=== PATIENT | male | born 1960 | race Caucasian/White ===

== ENCOUNTER → 2018-05-18 | Outpatient (CLI) | payer OTHER ==
[2015-06-29 12:36] VITALS: BP 127/73
[~2018-05-18] MED LIST: DAPA5TAB PO; GLIM4TAB2 PO; LISI1TAB3 PO; METF500T9 PO; OXYC1TAB22 PO
--- NOTE | 2018-05-18 22:10 | KCIC ---
EXAM: Lumbar spine, 3 views. HISTORY: Pain. COMPARISON: None. FINDINGS: 3 views of the lumbar spine are obtained. There is lumbar levoscoliosis centered at L2. There is degenerative endplate remodeling with disc space narrowing and osteophytosis primarily along the right aspect of L3-L4 and left aspect of L5-S1. This corresponds with levels of maximum scoliotic curvature. There is mild retrolisthesis of L3 on L4 and minimal grade 1 anterolisthesis of L4 and L5. There is chronic mild decreased anterior vertebral body height at T12. There is advanced facet arthropathy predominantly at the mid lower lumbar levels. IMPRESSION: 1. Multilevel degenerative change throughout the thoracic and lumbar spine, described in detail above. 2. Lumbar scoliosis and slight listhesis at the aforementioned levels. 3. No acute osseous finding. Electronically signed by: Adenike Crawley MD (05/18/2018 10:07 PM) [facility]
== END | disposition home or self-care (01) ==
LOC: KCIC 13:38
PROVIDERS: ATTEND Nurse Practitioner Gerontology
DX: M47.26 Other spondylosis with radiculopathy, lumbar region (principal); M47.814 Spondylosis without myelopathy or radiculopathy, thoracic region; M41.86 Other forms of scoliosis, lumbar region; M48.061 Spinal stenosis, lumbar region without neurogenic claudication
CPT/HCPCS: 72100

== ENCOUNTER → 2018-05-22 | Outpatient (CLI) | payer OTHER ==
[2015-06-29 12:36] VITALS: BP 127/73
--- NOTE | 2018-05-22 17:24 | KCIC ---
EXAM: AP, lateral and tangential patellar views of the right knee DATE: 05/22/2018 12:00 AM INDICATION: Right knee pain COMPARISON: No Prior FINDINGS: No evidence of acute fracture or dislocation. Joint spaces are preserved without significant degenerative/proliferative change. Moderate to severe medial compartment joint space narrowing with tricompartmental osteophytes. Small right knee joint effusion. Neutral patellar tracking. IMPRESSION: No evidence of acute fracture or dislocation. Small right knee joint effusion. Electronically signed by: Elieser Woodard MD (05/22/2018 5:21 PM) [facility]
== END | disposition home or self-care (01) ==
LOC: KCIC 11:13
PROVIDERS: ATTEND Nurse Practitioner Gerontology
DX: M25.461 Effusion, right knee (principal); M25.761 Osteophyte, right knee
CPT/HCPCS: 73562

== ENCOUNTER → 2018-09-24 | Outpatient (CLI) | payer OTHER ==
[2015-06-29 12:36] VITALS: BP 127/73
[~2018-09-24] MED LIST changes: +GABA600T7 PO; +INSU100V13 SQ; +LIRA0.6P2 SQ; +LISI-130 PO; +METF10007 PO; +NAPR220T70 PO; +NAPR500T8 PO
[2018-09-24 10:07] LABS: BASO % 0 % (0-3); EOS # 0.3 x10^3/uL (0.0-0.7); EOS % 4 % (0-3); HEMATOCRIT 48.3 % (39.0-53.0); HEMOGLOBIN 16.1 g/dL (13.0-17.5); LYMPH # 2.1 x10^3/uL (1.0-4.8); LYMPH % 28 % (24-48); MEAN CORPUSCULAR HEMOGLOBIN 31 pg (25-35); MEAN CORPUSCULAR HGB CONC 33 g/dL (31-37); MEAN CORPUSCULAR VOLUME 92 fL (79-100); MONO # 0.6 x10^3/uL (0.0-1.1); MONO % 8 % (0-9); NEUT # 4.6 x10^3uL (1.8-7.7); NEUT % 59 % (31-73); PLATELET COUNT 267 x10^3/uL (140-400); RED BLOOD COUNT 5.26 x10^6/uL (4.30-5.70); RED CELL DISTRIBUTION WIDTH 13.7 % (11.5-14.5); WHITE BLOOD COUNT 7.7 x10^3/uL (4.0-11.0)
[2018-09-24 10:16] LABS: BILIRUBIN,URINE SMALL (NEG); CLARITY,URINE CLEAR; COLOR,URINE YELLOW; NITRITE,URINE NEGATIVE (NEG); PH,URINE 5.5; PROTEIN,URINE NEGATIVE (NEG-TRACE)
[2018-09-24 10:22] LABS: PROTHROMBIN TIME PATIENT 13.2 SEC (11.7-14.0)
[2018-09-24 10:30] LABS: BACTERIA,URINE 0 /HPF (0-FEW); RBC,URINE 0 /HPF (0-2); WBC,URINE OCC /HPF (0-4)
--- NOTE | 2018-09-24 13:37 | EKG ---
[facility] [address] [place] [address] Test Date: 2018-09-24 Test Time: 13:02:16 Pat Name: SAUL STRAUSS Department: Room: Gender: M [employer]: : 1960 Requested By: CHI ADAMS Order Number: [id number] Reading MD: Jn Aguilera MD Measurements Intervals [place] Rate: 58 P: 26 MA: 224 QRS: 34 QRSD: 138 T: 31 QT: 438 QTc: 434 Interpretive Statements SINUS RHYTHM PROLONGED MA INTERVAL RIGHT BUNDLE BRANCH BLOCK NON-SPECIFIC ST/T CHANGES Electronically Signed On 09-25-2018 11:31:33 CDT by Jn Aguilera MD
--- NOTE | 2018-09-24 16:50 | RAD ---
Chest radiograph 09/24/2018 8:20 AM INDICATION: Hypertension. Preoperative evaluation COMPARISON: CT chest July 03, 2013, chest radiograph July 01, 2013, July 02, 2013 TECHNIQUE: Frontal and lateral views of the chest are provided. FINDINGS: The cardiomediastinal silhouette is within normal limits. There are no pleural effusions. There is no pulmonary vascular congestion. There is no pneumothorax. The lungs are clear. No significant osseous abnormality is identified. IMPRESSION: No acute cardiopulmonary process. Electronically signed by: Claudia Rodriguez MD (09/24/2018 4:47 PM) [id number]
== END | disposition home or self-care (01) ==
LOC: SURGPAT 13:15
PROVIDERS: ATTEND Orthopaedic Surgery
DX: Z01.818 Encounter for other preprocedural examination (principal); M17.0 Bilateral primary osteoarthritis of knee; M25.541 Pain in joints of right hand; I10 Essential (primary) hypertension; I45.10 Unspecified right bundle-branch block
CPT/HCPCS: 36415; 71046; 81001; 82306; 85025; 85610; 85651; 85730; 87641; 93005

== ENCOUNTER → 2018-10-01 | Outpatient (CLI) | payer OTHER ==
[2015-06-29 12:36] VITALS: BP 127/73
[~2018-10-01] MED LIST changes: +REGADENOSON 0.4 MG/5 ML DISP.SYRIN. IV ONE
--- NOTE | 2018-10-01 13:18 | RAD ---
MR#: [id number] Date of Study: 10/01/2018 Ordering Physician: RINKU JAIN Referring Physician: REN ALLEN Tech: RT Kirby Marino) (N) APPROVED REPORT Test Type: Pharmacological Stress Nurse/Tech: Nurys Martinez R.N. Test Indications: pre op Cardiac History: htn, dm Medications: see ehr Medical History: see ehr Resting ECG: SR RBBB Resting Heart Rate: 62 bpm Resting Blood Pressure: 121/73mmHg Pretest Chest Pain: No chest pain Nurse/Tech Notes lungs cta, heart tones regular Consent: The procedure was explained to the patient in lay terms. Informed consent was witnessed. Truman eout was entered into Needl. History and Stress Test performed by RT Kirby Otoole) (N) Pharm. Details Pharmacologic stress testing was performed using 0.4mg per 5ml of regadenoson given intravenously ove r 7-10 seconds. Stress Symptoms No chest pain or symptoms. POST EXERCISE Reason for Termination: Infusion complete Target HR: No Max HR: 91 bpm Max Blood Pressure: 120/76mmHg Chest Pain: No. Arrhythmia: No. ST Change: No. INTERPRETATION Stress EKG Conclusion: Baseline EKG showed sinus rhythm with RBBB. No ischemic changes at peak stres s. No arrhythmias. Imaging Protocol IMAGE PROTOCOL: Rest Tc-99m/stress Tc-99m 1 day Rest: Stress: Viability: Radiopharm.Tc99m YeogwczuqVz59b Sestamibi Dose10.6mCi 32.1mCi Duration 15min. 15min. Img Date 10/01/2018 10/01/2018 Inj-Img Rilc90dgd. 60min. Rest Admin Site:IV - Left AntecubitalAdministrator:RT Kirby Otoole)(N) Stress Admin Site: IV - Left AntecubitalAdministrator: RT Kirby Otoole)(N) STRESS DATA End Diast. Vol.129.0mlLVEDV index BSA58.0ml End Syst. Vol.45.0mlLVESV index BSA20.0ml Myocardial Blmb732.0gEject. Bpdjlxwn39.0% Stress Scores Regional WT2.00Summed WT9.00 Regional WM0.00Summed WM0.00 Study quality was good. Left Ventricular size was Normal at Rest and Stress. Lung uptake was . Left Ventricular ejection fraction is 65%. The rest and stress images show normal perfusion, normal contraction and thickening. LV Perf. Quant 17 Seg. SSS1.00 17 Seg. SRS7.00 17 Seg. SDS0.00 Stress Defect Extent (% LAD)2.50Rest Defect Extent (% LAD)15.60Rev. Defect Extent (% LAD)0.00 Stress Defect Extent (% LCX) 0.00Rest Defect Extent (% LCX)0.00Rev. Defect Extent (% LCX)0.00 Stress Defect Extent (% RCA)0.00Rest Defect Extent (% RCA)20.00Rev. Defect Extent (% RCA)0.00 Stress Defect Extent (% KWADWO)3.00Rest Defect Extent (% KWADWO)14.80Rev. Defect Extent (% KWADWO)0.00 Conclusion 1. Regadenoson cardioisotope stress test did not show any evidence of ischemia or infarct. 2. Normal left ventricular systolic function with ejection fraction calculated at 65%. 3. Low risk for cardiac events. Signed by : Rinku Jain Electronically Approved : 10/01/2018 13:18:07
== END | disposition home or self-care (01) ==
LOC: NM 07:49
PROVIDERS: ATTEND Internal Medicine Cardiovascular Disease
DX: Z01.810 Encounter for preprocedural cardiovascular examination (principal); I10 Essential (primary) hypertension; E11.9 Type 2 diabetes mellitus without complications
CPT/HCPCS: 78452; 93017; A9500; J2785

== ENCOUNTER → 2018-11-02 | Outpatient (CLI) | payer MEDICAID ==
[2018-10-12 11:00] VITALS: BP 106/62
[~2018-11-02] MED LIST changes: +CHOL2000 PO; +OXYC1TAB19 PO; -REGADENOSON 0.4 MG/5 ML DISP.SYRIN. IV ONE; +WARF-78 PO
== END | disposition home or self-care (01) ==
LOC: LAB 14:49
PROVIDERS: ATTEND Orthopaedic Surgery
DX: Z79.01 Long term (current) use of anticoagulants (principal)
CPT/HCPCS: 36415; 85610

== ENCOUNTER → 2018-11-29 | Outpatient (CLI) | payer MEDICAID ==
[2018-10-12 11:00] VITALS: BP 106/62
[~2018-11-29] MED LIST changes: +LISI1TAB23 PO; -LISI1TAB3 PO; +METF500T11 PO; -METF500T9 PO
--- NOTE | 2018-11-29 15:10 | CARD ---
MR#: [id number] Date of Study: 11/29/2018 Ordering Physician: RINKU JAIN, Referring Physician: RINKU JAIN Tech: Elli Jenkins RDCS APPROVED REPORT EXAM: Two-dimensional and M-mode echocardiogram with Doppler and color Doppler. Other Information Quality : AverageHR: 85bpm Rhythm : NSR INDICATION Hypertension/HCVD 2D DIMENSIONS RVDd3.0 (2.9-3.5cm)Left Atrium(2D)3.9 (1.6-4.0cm) IVSd1.3 (0.7-1.1cm)Aortic Root(2D)3.5 (2.0-3.7cm) LVDd4.7 (3.9-5.9cm)LVOT Diameter2.2 (1.8-2.4cm) PWd1.1 (0.7-1.1cm)IVSs2.4 (0.8-1.2cm) LVDs2.7 (2.5-4.0cm)FS (%) 41.0 % PWs1.7 (0.8-1.2cm)SV72.1 ml Aortic Valve AoV Peak Leno.121.0cm/sAoV VTI21.1cm AO Peak GR.5.9mmHgLVOT Peak Lneo.102.7cm/s LVOT VTI 18.63cmAO Mean GR.4mmHg VANDANA (VMAX)2.18gu8KWU (VTI)3.44cm2 Mitral Valve MV E Xnwmlkeg37.0cm/sMV DECEL TROP311nj MV A Bppvwetp76.8cm/sMV LVU12jz E/A Ratio0.7MVA (PHT)4.36cm2 TDI E/Lateral E'5.8 Pulmonary Valve PV Peak Eztfvevz872.6cm/sPV Peak Grad.5mmHg LEFT VENTRICLE The left ventricle is normal size. There is mild concentric left ventricular hypertrophy. The left ve ntricular systolic function is normal. The ejection fraction is estimated at 65%. There is normal LV segmental wall motion. Transmitral Doppler flow pattern is Grade I-abnormal relaxation pattern. RIGHT VENTRICLE The right ventricle is normal size. There is normal right ventricular wall thickness. The right ventr icular systolic function is normal. ATRIA The left atrium size is normal. The right atrium size is normal. The interatrial septum is intact wit h no evidence for an atrial septal defect or patent foramen ovale as noted on 2-D or Doppler imaging. AORTIC VALVE The aortic valve is mildly calcified. The aortic valve is trileaflet. Doppler and Color Flow revealed no significant aortic regurgitation. There is no significant aortic valvular stenosis. MITRAL VALVE Mitral annular calcification is mild. There is no evidence of mitral valve prolapse. There is no mitr al valve stenosis. Doppler and Color Flow revealed trace mitral valve regurgitation. TRICUSPID VALVE The tricuspid valve is normal in structure and function. Doppler and Color Flow revealed no tricuspid valve regurgitation noted. There is no tricuspid valve prolapse or vegetation. There is no tricuspid valve stenosis. PULMONIC VALVE The pulmonic valve is not well visualized. GREAT VESSELS The aortic root is normal in size. The ascending aorta is normal in size. The IVC is normal in size a nd collapses >50% with inspiration. PERICARDIAL EFFUSION There is no evidence of significant pericardial effusion. Critical Notification Critical Value: No <Conclusion> The left ventricle is normal size. The left ventricular systolic function is normal. The ejection fraction is estimated at 65%. There is mild concentric left ventricular hypertrophy. There is no significant aortic valvular stenosis. Doppler and Color Flow revealed no significant aortic regurgitation. Doppler and Color Flow revealed trace mitral valve regurgitation. Doppler and Color Flow revealed no tricuspid valve regurgitation noted. Signed by : Shayan Guido MD Electronically Approved : 11/29/2018 15:10:01
== END | disposition home or self-care (01) ==
LOC: ECHO 12:51
PROVIDERS: ATTEND Internal Medicine Cardiovascular Disease
DX: Z01.810 Encounter for preprocedural cardiovascular examination (principal); I08.0 Rheumatic disorders of both mitral and aortic valves; I11.9 Hypertensive heart disease without heart failure; E11.9 Type 2 diabetes mellitus without complications
CPT/HCPCS: 93306

== ENCOUNTER 2018-12-09 18:50 | Inpatient (IN) | payer MEDICAID ==
[~2018-12-09] VITALS: Ht 175.3 cm; Wt 106.8 kg
[2018-12-09] MEDS ORDERED: ONDANSETRON PF 4 MG/2 ML VIAL. IV ONE (19:45)
[2018-12-09] MEDS ORDERED: PANTOPRAZOLE IV PUSH 40 MG VIAL. IVP ONE (19:45)
[2018-12-09] MEDS ORDERED: MORPHINE SULFATE 4 MG/ML VIAL. IV/SQ PRN (19:45)
[2018-12-09 19:46] LABS: BASO % 0 % (0-3); EOS # 0.1 x10^3/uL (0.0-0.7); EOS % 1 % (0-3); HEMATOCRIT 45.8 % (39.0-53.0); HEMOGLOBIN 15.1 g/dL (13.0-17.5); LYMPH # 1.5 x10^3/uL (1.0-4.8); LYMPH % 13 % (24-48); MEAN CORPUSCULAR HEMOGLOBIN 29 pg (25-35); MEAN CORPUSCULAR HGB CONC 33 g/dL (31-37); MEAN CORPUSCULAR VOLUME 87 fL (79-100); MONO # 0.7 x10^3/uL (0.0-1.1); MONO % 6 % (0-9); NEUT # 9.3 x10^3/uL (1.8-7.7); NEUT % 80 % (31-73); PLATELET COUNT 310 x10^3/uL (140-400); RED BLOOD COUNT 5.24 x10^6/uL (4.30-5.70); RED CELL DISTRIBUTION WIDTH 14.5 % (11.5-14.5); WHITE BLOOD COUNT 11.7 x10^3/uL (4.0-11.0)
--- NOTE | 2018-12-09 19:47 | PHYS DOC ---
Past Medical History Past Medical History: Diabetes-Type II, Hypertension, Other Additional Past Medical Histor: hernia Past Surgical History: Tonsillectomy Additional Past Surgical Histo: Umbilical Hernia repair Alcohol Use: None Drug Use: Marijuana, Methamphetamine Adult General Chief Complaint Chief Complaint: ABDOMINAL PAIN HPI HPI 58-year-old male presents to the emergency Department with complaints of abdominal pain. Patient states pain started around 7 AM today when he woke, describes as a burning sensation with radiation to his back. He's had some chills, no fever, diarrhea, nausea appreciated. Patient does have intermittent shortness of breath. He is hypertensive on initial evaluation blood pressure 200 systolically. Upon my evaluation patient had evidence of 13 beats of V. tach. Nothing really makes his pain worse or better, states he can't get comfortable. Review of Systems Review of Systems Constitutional: Denies fever or chills [] Respiratory: shortness of breath, no [] Cardiovascular: No additional information not addressed in HPI [] GI: Positive abdominal pain, no nausea, vomiting, bloody stools or diarrhea [] : Denies dysuria or hematuria [] Musculoskeletal: Pain radiates to the back Integument: Denies rash or skin lesions [] Neurologic: Denies headache, focal weakness or sensory changes [] All other systems were reviewed and found to be within normal limits, except as documented in this note. Current Medications Current Medications Current Medications Medications (Trade) Dose Ordered Sig/Angelique Start Time Stop Time Status Last Admin Dose Admin Info (CONTRAST GIVEN -- Rx MONITORING) 1 each PRN DAILY PRN 12/09/18 20:15 12/11/18 20:14 Iohexol (Omnipaque 350 Mg/ml) 90 ml 1X ONCE 12/09/18 20:15 12/09/18 20:16 DC 12/09/18 20:26 90 ML Morphine Sulfate (Morphine Sulfate) 4 mg PRN Q15MIN PRN 12/09/18 19:45 12/10/18 19:44 12/09/18 20:16 4 MG Ondansetron HCl (Zofran) 4 mg 1X ONCE 12/09/18 19:45 12/09/18 19:46 DC 12/09/18 20:16 4 MG Pantoprazole Sodium (PROTONIX VIAL for IV PUSH) 40 mg 1X ONCE 12/09/18 19:45 12/09/18 19:46 DC 12/09/18 20:16 40 MG Allergies Allergies Allergies Coded Allergies Type Severity Reaction Last Updated Verified No Known Drug Allergies 10/09/18 No Physical Exam Physical Exam Constitutional: Well developed, well nourished, no acute distress, non-toxic appearance. [] HENT: Normocephalic, atraumatic, bilateral external ears normal, oropharynx mo ist, no oral exudates, nose normal. [] Neck: Normal range of motion, no tenderness, supple, no stridor. [] Cardiovascular:Heart rate regular rhythm, no murmur [] Lungs & Thorax: Bilateral breath sounds clear to auscultation [] Abdomen: Bowel sounds normal, soft, no pulsatile masses, abdominal pain, radiation to back,[] Skin: Warm, dry, no erythema, no rash. [] Back: No tenderness, no CVA tenderness. [] Extremities: No tenderness, no cyanosis, no clubbing, ROM intact, no edema. [] Neurologic: Alert and oriented X 3, o focal deficits noted. [] Psychologic: Affect normal, judgement normal, mood normal. [] Current Patient Data Vital Signs Vital Signs Date Time Temp Pulse Resp B/P (MAP) Pulse Ox O2 Delivery O2 Flow Rate FiO2 12/09/18 20:16 97 Room Air 12/09/18 19:07 97.5 82 17 204/101 (135) 97.5 Lab Values Laboratory Tests Test 12/09/18 19:20 12/09/18 19:55 White Blood Count 11.7 x10^3/uL (4.0-11.0) H Red Blood Count 5.24 x10^6/uL (4.30-5.70) Hemoglobin 15.1 g/dL (13.0-17.5) Hematocrit 45.8 % (39.0-53.0) Mean Corpuscular Volume 87 fL (79-100) Mean Corpuscular Hemoglobin 29 pg (25-35) Mean Corpuscular Hemoglobin Concent 33 g/dL (31-37) Red Cell Distribution Width 14.5 % (11.5-14.5) Platelet Count 310 x10^3/uL (140-400) Neutrophils (%) (Auto) 80 % (31-73) H Lymphocytes (%) (Auto) 13 % (24-48) L Monocytes (%) (Auto) 6 % (0-9) Eosinophils (%) (Auto) 1 % (0-3) Basophils (%) (Auto) 0 % (0-3) Neutrophils # (Auto) 9.3 x10^3/uL (1.8-7.7) H Lymphocytes # (Auto) 1.5 x10^3/uL (1.0-4.8) Monocytes # (Auto) 0.7 x10^3/uL (0.0-1.1) Eosinophils # (Auto) 0.1 x10^3/uL (0.0-0.7) Basophils # (Auto) 0.0 x10^3/uL (0.0-0.2) Prothrombin Time 12.5 SEC (11.7-14.0) Prothrombin Time INR 1.0 (0.8-1.1) Sodium Level 140 mmol/L (136-145) Potassium Level 3.7 mmol/L (3.5-5.1) Chloride Level 100 mmol/L (98-107) Carbon Dioxide Level 30 mmol/L (21-32) Anion Gap 10 (6-14) Blood Urea Nitrogen 20 mg/dL (8-26) Creatinine 0.7 mg/dL (0.7-1.3) Estimated GFR (Cockcroft-Gault) 115.0 BUN/Creatinine Ratio 29 (6-20) H Glucose Level 138 mg/dL (70-99) H Calcium Level 9.0 mg/dL (8.5-10.1) Magnesium Level 1.9 mg/dL (1.8-2.4) Total Bilirubin 0.4 mg/dL (0.2-1.0) Aspartate Amino Transferase (AST) 14 U/L (15-37) L Alanine Aminotransferase (ALT) 19 U/L (16-63) Alkaline Phosphatase 106 U/L (46-116) Troponin I Quantitative 0.081 ng/mL (0.000-0.055) Total Protein 7.3 g/dL (6.4-8.2) Albumin 3.5 g/dL (3.4-5.0) Albumin/Globulin Ratio 0.9 (1.0-1.7) L Lactic Acid Level 1.0 mmol/L (0.4-2.0) Laboratory Tests 12/09/18 19:20 Laboratory Tests 12/09/18 19:20 EKG EKG EKG reveals right bundle branch block, heart rate 65, no STEMI[] Interpretation Time: 1942 interpretation Radiology/Procedures Radiology/Procedures [facility] [address] [place] [address] IMAGING REPORT Signed PATIENT: SAUL STRAUSSCCOUNT: [id number] : 1960 LOCATION: ER AGE: 58 SEX: M EXAM STATUS: REG ER ORD. PHYSICIAN: NIMISHA PERKINS MD REASON: abdominal pain, radiation to back, Accelerated HTN PROCEDURE: CT ANGIOGRAPHY CHEST ABDOMEN EXAM: CT of chest and abdomen CLINICAL HISTORY: abdominal pain, radiation to back, Accelerated HTN. COMPARISON: 07/03/13 TECHNIQUE: CT of the chest and abdomen was performed before and after the administration of intravenous contrast during the aortic arterial phase. Axial, coronal and sagittal reformatted images were generated including MIP images. ---PQRS compliance statement - One or more of the following individualized dose reduction techniques were utilized for this study: 1. Automated exposure control 2. Adjustment of the mA and/or kV according to patient size 3. Use of iterative reconstruction technique--- FINDINGS: CT angiogram: Cardiac motion limits evaluation of the ascending aorta. Within these constraints no definite aortic aneurysm is seen. At the level of the right pulmonary artery, the ascending aorta measures 3.7 cm. At the aortic arch the aorta measures 2.8 cm. At the level of the descending aorta, the left pulmonary artery measures 2.6 cm. At the diaphragmatic hiatus, the aorta measures 2.5 cm. The abdominal aorta remains normal in caliber throughout. No aortic dissection is seen. Common origin of the brachiocephalic artery and left common carotid artery. The left vertebral artery originates from the aorta. Asymmetric enlargement of the left pulmonary artery, may be seen with pulmonary arterial hypertension. CHEST: Heart is not enlarged. No pericardial effusion. Coronary artery calcifications are seen. No pleural effusion or pneumothorax. Linear and patchy opacities dependently in the lower lobes likely atelectasis or scarring. Emphysematous changes are seen bilaterally. No thoracic lymphadenopathy. Abdomen: Hepatic hypoattenuation likely hepatic steatosis. Focal fatty sparing along the gallbladder fossa. Spleen is unremarkable. Adrenal glands are normal. Pancreas is unremarkable. Symmetric nephrograms. Right interpolar and lower pole renal hypodense lesions, likely cysts. Focal renal cortical thinning right upper pole. No hydronephrosis. Nonobstructing bilateral renal calculi. There is distention of the gallbladder measuring up to 5.5 cm. No biliary ductal dilatation. Fat infiltration is seen about the cystic duct and common duct. Moderate colonic stool content is seen. Appendix is normal. No small or large bowel dilatation. Colonic diverticula without evidence for acute diverticulitis. Local hernia contains a short segment of small bowel. No abdominal lymphadenopathy. No abdominal ascites. Bones: Degenerative changes of the spine are seen. No aggressive osseous lesion is seen. IMPRESSION: 1. Aorta is grossly normal in caliber without evidence for aortic dissection. 2. The gallbladder is distended measuring up to 5.5 cm transverse dimension, with infiltration about the cystic duct and medial portion of the gallbladder. These findings are suspicious for acute cholecystitis. 3. Hepatic steatosis with focal fatty sparing at the gallbladder fossa. 4. Periumbilical hernia containing a short segment of small bowel 5. Nonobstructing bilateral renal calculi. Electronically signed by: Elieser Gaytan MD (12/09/2018 8:52 PM) [facility] DICTATED and SIGNED BY: ELIESER GAYTAN MD DATE: 12/09/182051 [] Course & Med Decision Making Course & Med Decision Making Pertinent Labs and Imaging studies reviewed. (See chart for details) []58-year-old male presents to the emergency Department with complaints of abdominal pain. Patient states pain started around 7 AM today when he woke, describes as a burning sensation with radiation to his back. He's had some chills, no fever, diarrhea, nausea appreciated. Patient does have intermittent shortness of breath. He is hypertensive on initial evaluation blood pressure 200 systolically. Upon my evaluation patient had evidence of 13 beats of V. tach. Nothing really makes his pain worse or better, states he can't comfortable. Labs/Imaging reviewed. Troponin mildly elevated 0.081, lactic acid 1.0, pulse of 11.7, potassium 3.7, RBC 1.9. CT imaging of the chest and abdomen reviewed no evidence of aortic dissection, [place] is distended measuring up to 5.5 cm however AST, ALT, alkaline phosphatase are within normal limits. No obvious evidence of large burden PE. Discussed findings with primary care physician, Dr. Adkins. We'll initiate heparin with bolus, heparin drip and continued observation in CVC. Etiology consultation. Zosyn 4.5 g IV �1 given abnormal findings on CT scan however will need to be cleared by cardiology prior to further surgical evaluation if in fact cholecystitis declares itself. Dragon Disclaimer Dragon Disclaimer This electronic medical record was generated, in whole or in part, using a voice recognition dictation system. Departure Departure Impression: Primary Impression: NSTEMI (non-ST elevated myocardial infarction) Additional Impressions: NSVT (nonsustained ventricular tachycardia) Abdominal pain Disposition: ADMITTED INPATIENT Admitting Physician: Elmer Adkins Condition: GUARDED Referrals: Marilou ADKINS MD (PCP) Problem Qualifiers NIMISHA PERKINS MD Dec 09, 2018 19:47
[2018-12-09 19:53] LABS: PROTHROMBIN TIME PATIENT 12.5 SEC (11.7-14.0)
[2018-12-09 19:55] LABS: CREATININE 0.7 mg/dL (0.7-1.3); POTASSIUM 3.7 mmol/L (3.5-5.1)
[2018-12-09 20:00] LABS: ALBUMIN 3.5 g/dL (3.4-5.0); ALBUMIN/GLOBULIN RATIO 0.9 (1.0-1.7); TOTAL BILIRUBIN 0.4 mg/dL (0.2-1.0); TOTAL PROTEIN 7.3 g/dL (6.4-8.2)
[2018-12-09] MEDS ORDERED: CONTRAST GIVEN. MC PRN (20:15)
[2018-12-09] MEDS ORDERED: IOHEXOL 350 MG/ML 100 ML VIAL. IV ONE (20:15)
--- NOTE | 2018-12-09 20:55 | RAD ---
EXAM: CT of chest and abdomen CLINICAL HISTORY: abdominal pain, radiation to back, Accelerated HTN. COMPARISON: 07/03/13 TECHNIQUE: CT of the chest and abdomen was performed before and after the administration of intravenous contrast during the aortic arterial phase. Axial, coronal and sagittal reformatted images were generated including MIP images. ---PQRS compliance statement - One or more of the following individualized dose reduction techniques were utilized for this study: 1. Automated exposure control 2. Adjustment of the mA and/or kV according to patient size 3. Use of iterative reconstruction technique--- FINDINGS: CT angiogram: Cardiac motion limits evaluation of the ascending aorta. Within these constraints no definite aortic aneurysm is seen. At the level of the right pulmonary artery, the ascending aorta measures 3.7 cm. At the aortic arch the aorta measures 2.8 cm. At the level of the descending aorta, the left pulmonary artery measures 2.6 cm. At the diaphragmatic hiatus, the aorta measures 2.5 cm. The abdominal aorta remains normal in caliber throughout. No aortic dissection is seen. Common origin of the brachiocephalic artery and left common carotid artery. The left vertebral artery originates from the aorta. Asymmetric enlargement of the left pulmonary artery, may be seen with pulmonary arterial hypertension. CHEST: Heart is not enlarged. No pericardial effusion. Coronary artery calcifications are seen. No pleural effusion or pneumothorax. Linear and patchy opacities dependently in the lower lobes likely atelectasis or scarring. Emphysematous changes are seen bilaterally. No thoracic lymphadenopathy. Abdomen: Hepatic hypoattenuation likely hepatic steatosis. Focal fatty sparing along the gallbladder fossa. Spleen is unremarkable. Adrenal glands are normal. Pancreas is unremarkable. Symmetric nephrograms. Right interpolar and lower pole renal hypodense lesions, likely cysts. Focal renal cortical thinning right upper pole. No hydronephrosis. Nonobstructing bilateral renal calculi. There is distention of the gallbladder measuring up to 5.5 cm. No biliary ductal dilatation. Fat infiltration is seen about the cystic duct and common duct. Moderate colonic stool content is seen. Appendix is normal. No small or large bowel dilatation. Colonic diverticula without evidence for acute diverticulitis. Local hernia contains a short segment of small bowel. No abdominal lymphadenopathy. No abdominal ascites. Bones: Degenerative changes of the spine are seen. No aggressive osseous lesion is seen. IMPRESSION: 1. Aorta is grossly normal in caliber without evidence for aortic dissection. 2. The gallbladder is distended measuring up to 5.5 cm transverse dimension, with infiltration about the cystic duct and medial portion of the gallbladder. These findings are suspicious for acute cholecystitis. 3. Hepatic steatosis with focal fatty sparing at the gallbladder fossa. 4. Periumbilical hernia containing a short segment of small bowel 5. Nonobstructing bilateral renal calculi. Electronically signed by: Elieser Woodard MD (12/09/2018 8:52 PM) [facility]
[2018-12-09] MEDS ORDERED: MORPHINE SULFATE 2 MG/ML VIAL. IV PRN (21:15)
[2018-12-09] MEDS ORDERED: NITROGLYCERIN SUBLINGUAL 0.4 MG BOTTLE OF 25. SL PRN (21:15)
[2018-12-09] MEDS ORDERED: ONDANSETRON PF 4 MG/2 ML VIAL. IV PRN (21:15)
[2018-12-09] MEDS ORDERED: HEPARIN 25,000UTS/500ML PREMIX 500 ML IV ONE (21:30)
[2018-12-09] MEDS ORDERED: HEPARIN for IV BOLUS 10,000 UNIT/10 ML VIAL. IV ONE (21:30)
[2018-12-09] MEDS ORDERED: ASPIRIN 325 MG TABLET PO ONE (21:30)
[2018-12-09] MEDS ORDERED: PIPERACILLIN/TAZOBACTAM 4.5 GM in IV NORMAL SALINE 100ML 100 ML IV ONE (21:30)
[2018-12-09] MEDS ORDERED: hydrALAZINE 20 MG/ML VIAL. IVP PRN (21:30)
[2018-12-09] MEDS ORDERED: HEPARIN for IV BOLUS 10,000 UNIT/10 ML VIAL. IV PRN (22:00)
[2018-12-09] MEDS ORDERED: HEPARIN 25,000UTS/500ML PREMIX 500 ML IV PRN (22:00)
[2018-12-09 23:24] VITALS: BP 142/90
[2018-12-10] MEDS ORDERED: INFLUENZA VAX SCREEN BY RX. MC PRN ×2 (01:00→01:45)
[2018-12-10 01:40] LABS: BILIRUBIN,URINE NEGATIVE (NEG); CLARITY,URINE CLEAR; COLOR,URINE YELLOW; NITRITE,URINE NEGATIVE (NEG); PROTEIN,URINE NEGATIVE (NEG-TRACE)
[2018-12-10 01:48] LABS: BACTERIA,URINE 0 /HPF (0-FEW); RBC,URINE 0 /HPF (0-2); SQUAMOUS EPITHELIAL CELL,UR OCC /LPF; WBC,URINE OCC /HPF (0-4)
[2018-12-10 03:40] VITALS: BP 131/72
[2018-12-10 04:55] LABS: BASO % 0 % (0-3); EOS # 0.1 x10^3/uL (0.0-0.7); EOS % 1 % (0-3); HEMATOCRIT 43.5 % (39.0-53.0); HEMOGLOBIN 14.4 g/dL (13.0-17.5); LYMPH # 1.3 x10^3/uL (1.0-4.8); LYMPH % 10 % (24-48); MEAN CORPUSCULAR HEMOGLOBIN 29 pg (25-35); MEAN CORPUSCULAR HGB CONC 33 g/dL (31-37); MEAN CORPUSCULAR VOLUME 87 fL (79-100); MONO # 0.8 x10^3/uL (0.0-1.1); MONO % 7 % (0-9); NEUT # 10.3 x10^3/uL (1.8-7.7); NEUT % 82 % (31-73); PLATELET COUNT 287 x10^3/uL (140-400); RED BLOOD COUNT 4.97 x10^6/uL (4.30-5.70); RED CELL DISTRIBUTION WIDTH 14.1 % (11.5-14.5); WHITE BLOOD COUNT 12.5 x10^3/uL (4.0-11.0)
[2018-12-10 05:18] LABS: ALBUMIN 3.1 g/dL (3.4-5.0); CALCIUM 8.7 mg/dL (8.5-10.1); CREATININE 0.6 mg/dL (0.7-1.3); GFR 137.4; POTASSIUM 4.2 mmol/L (3.5-5.1); TOTAL BILIRUBIN 0.7 mg/dL (0.2-1.0); TOTAL PROTEIN 6.3 g/dL (6.4-8.2)
--- NOTE | 2018-12-10 06:33 | EKG ---
[facility] [address] [place] [address] Test Date: 2018-12-09 Test Time: 19:39:51 Pat Name: SAUL STRAUSS Department: Room: Gender: M [employer]: : 1960 Requested By: NIMISHA PERKINS Order Number: [id number] Reading MD: Measurements Intervals [place] Rate: 64 P: 177 GA: 212 QRS: -167 QRSD: 130 T: 175 QT: 420 QTc: 437 Interpretive Statements SINUS RHYTHM * POSSIBLE REVERSAL OF THE ARM LEADS ABNORMAL RIGHT SUPERIOR AXIS DEVIATION RIGHT BUNDLE BRANCH BLOCK RVH WITH REPOLARIZATION ABNORMALITY QRS(T) CONTOUR ABNORMALITY CONSIDER HIGH LATERAL INFARCT CONSISTENT WITH INFERIOR INFARCT AGE UNDETERMINED ABNORMAL ECG No previous ECG available for comparison
[2018-12-10 07:00] VITALS: BP 114/65
[2018-12-10] MEDS ORDERED: ANTI-COAG MONITOR BY PHARMACY. MC PRN (08:45)
[2018-12-10] MEDS ORDERED: FLU VAX QS 2019-20 (36MOS+)/PF 0.5 ML SYRINGE. VAX IM ONE (09:00)
--- NOTE | 2018-12-10 10:25 | PDOC1 ---
History and Physical Date of Admission Date of Admission 12/09/18 Identification/Chief Complaint Chief Complaint abdominal pain Source Source: Chart review, Patient History of Present Illness History of Present Illness He presented to ER with abdominal pain and CT imaging showing changes of acute cholecystitis and he now has a positive Gomez's sign. He also has an umbilical hernia with a loop of bowel and steatohepatitis changes of liver and kidney stones. While in the ER and on the monitor he had frequent PVCs and a troponin was checked and is slightly elevated and subsequent one is a little higher. He is not known to have heart disease and was cleared for TKR 2 mo ago with a normal echo and stress MPI but is diabetic and has hyperlipidemia. He denies chest pain. Overnight his WBC went up and is now mildly abnormal. He had a right knee replacement earlier this year. He is currently on Heparin and was dosed with antibiotics in the ER Past Medical History Cardiovascular: HTN Pulmonary: No pertinent hx GI: Other (umbilical hernia) Heme/Onc: No pertinent hx Hepatobiliary: Cholelithiasis (just discovered) Psych: No pertinent hx Rheumatologic: Other (OA) Infectious disease: No pertinent hx ENT: No pertinent hx Renal/: Other (kidney stones) Endocrine: Diabetes (type 2) Dermatology: No pertinent hx Past Surgical History Past Surgical History: Hernia Repair (umbilical), Total knee replacement (right), Tonsillectomy, Other Family History Family History: Cancer (colon, brother), Hypertension Social History Smoke: Quit (quit > 10 yrs ago) ALCOHOL: none Drugs: None Current Problem List Problem List Problems Medical Problems: (1) Abdominal pain Status: Acute Current Medications Current Medications Current Medications Medications (Trade) Dose Ordered Sig/Angelique Start Time Stop Time Status Last Admin Dose Admin Aspirin (Trace Aspirin) 325 mg 1X ONCE 12/09/18 21:30 12/09/18 21:31 DC 12/09/18 21:56 325 MG Gabapentin (Neurontin) 900 mg DAILY 12/10/18 09:00 Heparin Sodium (Porcine) (Heparin Sodium) 2,650 unit PRN Q6HRS PRN 12/09/18 22:00 12/10/18 05:34 2,650 UNIT Heparin Sodium/ Dextrose 500 ml @ 0 mls/hr CONT PRN 12/09/18 22:00 12/09/18 22:55 20 MLS/HR Hydralazine HCl (Apresoline Inj) 10 mg PRN Q4HRS PRN 12/09/18 21:30 Influenza Virus Vaccine Quadrival (Afluria Quad 2019-20 (3yr Up) Syringe) 0.5 ml ONCE ONCE 12/10/18 09:00 12/10/18 09:01 DC Info (Anti-Coagulation Monitoring By Pharmacy) 1 each PRN DAILY PRN 12/10/18 08:45 Info (CONTRAST GIVEN -- Rx MONITORING) 1 each PRN DAILY PRN 12/09/18 20:15 12/11/18 20:14 Info (FLU VACCINE SCREEN per RX) 1 each PRN 1X PRN 12/10/18 01:45 Cancel Insulin Glargine (Lantus Syringe) 8 unit DAILY 12/10/18 09:00 Iohexol (Omnipaque 350 Mg/ml) 90 ml 1X ONCE 12/09/18 20:15 12/09/18 20:16 DC 12/09/18 20:26 90 ML Lisinopril (Prinivil) 40 mg DAILY 12/10/18 09:00 Metformin HCl (Glucophage) 500 mg DAILYWBKFT 12/12/18 08:00 Morphine Sulfate (Morphine Sulfate) 2 mg PRN Q2HR PRN 12/09/18 21:15 12/10/18 21:14 12/09/18 22:38 2 MG Nitroglycerin (Nitrostat) 0.4 mg PRN Q5MIN PRN 12/09/18 21:15 12/10/18 21:14 Non-Formulary Medication (Dapagliflozin Propanediol (Farxiga)) 5 mg DAILY 12/10/18 09:00 UNV Non-Formulary Medication (Liraglutide (Victoza 3-[place])) 1.2 mg DAILY08 12/11/18 08:00 UNV Ondansetron HCl (Zofran) 4 mg PRN Q8HRS PRN 12/09/18 21:15 12/10/18 21:14 Pantoprazole Sodium (PROTONIX VIAL for IV PUSH) 40 mg 1X ONCE 12/09/18 19:45 12/09/18 19:46 DC 12/09/18 20:16 40 MG Piperacillin Sod/ Tazobactam Sod 4.5 gm/Sodium Chloride 100 ml @ 200 mls/hr 1X ONCE 12/09/18 21:30 12/09/18 21:59 DC 12/09/18 21:56 200 MLS/HR Allergies Allergies Allergies Coded Allergies Type Severity Reaction Last Updated Verified No Known Drug Allergies 10/09/18 No ROS Review of System CONSTITUTIONAL: No fever or chills EYES: No recent changes SKIN: No rash or itching CARDIOVASCULAR: No chest pain, syncope, palpitations, or edema RESPIRATORY: No SOB or cough GASTROINTESTINAL: + abdominal pain NEUROLOGICAL: No headaches or weakness ENDOCRINE: No cold or heat intolerance GENITOURINARY: No urgency or frequency of urination MUSCULOSKELETAL: + back pain, + left knee joint pain LYMPHATICS: No enlarged lymph nodes PSYCHIATRIC: No anxiety or depression Physical Exam Physical Exam GEN.: No apparent distress. Alert and oriented. HEENT: Head is normocephalic, atraumatic NECK: Supple. LUNGS: Clear to auscultation. HEART: RRR, S1, S2 present. Peripheral pulses intact ABDOMEN: + Gomez's sign, bowel sounds present, liver not palpable EXTREMITIES: Without any cyanosis, healed right TKR incision. NEUROLOGIC: Normal speech, normal tone PSYCHIATRIC: Normal affect, normal mood. SKIN: No ulcerations Vitals Vitals Vital Signs Date Time Temp Pulse Resp B/P (MAP) Pulse Ox O2 Delivery O2 Flow Rate FiO2 12/10/18 07:00 98.4 78 16 114/65 (81) 91 Room Air 98.4 12/09/18 20:58 2.0 Labs Labs Laboratory Tests Test 12/09/18 19:20 12/09/18 19:55 12/09/18 22:35 12/10/18 01:25 White Blood Count 11.7 x10^3/uL (4.0-11.0) Red Blood Count 5.24 x10^6/uL (4.30-5.70) Hemoglobin 15.1 g/dL (13.0-17.5) Hematocrit 45.8 % (39.0-53.0) Mean Corpuscular Volume 87 fL (79-100) Mean Corpuscular Hemoglobin 29 pg (25-35) Mean Corpuscular Hemoglobin Concent 33 g/dL (31-37) Red Cell Distribution Width 14.5 % (11.5-14.5) Platelet Count 310 x10^3/uL (140-400) Neutrophils (%) (Auto) 80 % (31-73) Lymphocytes (%) (Auto) 13 % (24-48) Monocytes (%) (Auto) 6 % (0-9) Eosinophils (%) (Auto) 1 % (0-3) Basophils (%) (Auto) 0 % (0-3) Neutrophils # (Auto) 9.3 x10^3/uL (1.8-7.7) Lymphocytes # (Auto) 1.5 x10^3/uL (1.0-4.8) Monocytes # (Auto) 0.7 x10^3/uL (0.0-1.1) Eosinophils # (Auto) 0.1 x10^3/uL (0.0-0.7) Basophils # (Auto) 0.0 x10^3/uL (0.0-0.2) Prothrombin Time 12.5 SEC (11.7-14.0) Prothromb Time International Ratio 1.0 (0.8-1.1) Sodium Level 140 mmol/L (136-145) Potassium Level 3.7 mmol/L (3.5-5.1) Chloride Level 100 mmol/L (98-107) Carbon Dioxide Level 30 mmol/L (21-32) Anion Gap 10 (6-14) Blood Urea Nitrogen 20 mg/dL (8-26) Creatinine 0.7 mg/dL (0.7-1.3) Estimated GFR (Cockcroft-Gault) 115.0 BUN/Creatinine Ratio 29 (6-20) Glucose Level 138 mg/dL (70-99) Calcium Level 9.0 mg/dL (8.5-10.1) Magnesium Level 1.9 mg/dL (1.8-2.4) Total Bilirubin 0.4 mg/dL (0.2-1.0) Aspartate Amino Transf (AST/SGOT) 14 U/L (15-37) Alanine Aminotransferase (ALT/SGPT) 19 U/L (16-63) Alkaline Phosphatase 106 U/L (46-116) Troponin I Quantitative 0.081 ng/mL (0.000-0.055) 0.045 ng/mL (0.000-0.055) Total Protein 7.3 g/dL (6.4-8.2) Albumin 3.5 g/dL (3.4-5.0) Albumin/Globulin Ratio 0.9 (1.0-1.7) Lactic Acid Level 1.0 mmol/L (0.4-2.0) Urine Collection Type Unknown Urine Color Yellow Urine Clarity Clear Urine pH 7.0 Urine Specific [place] >=1.030 Urine Protein Negative mg/dL (NEG-TRACE) Urine Glucose (UA) 500 mg/dL (NEG) Urine Ketones (Stick) Negative mg/dL (NEG) Urine Blood Negative (NEG) Urine Nitrite Negative (NEG) Urine Bilirubin Negative (NEG) Urine Urobilinogen Dipstick 1.0 mg/dL (0.2 mg/dL) Urine Leukocyte Esterase Negative (NEG) Urine RBC 0 /HPF (0-2) Urine WBC Occ /HPF (0-4) Urine Squamous Epithelial Cells Occ /LPF Urine Bacteria 0 /HPF (0-FEW) Urine Mucus Slight /LPF Test 12/10/18 04:40 12/10/18 08:24 White Blood Count 12.5 x10^3/uL (4.0-11.0) Red Blood Count 4.97 x10^6/uL (4.30-5.70) Hemoglobin 14.4 g/dL (13.0-17.5) Hematocrit 43.5 % (39.0-53.0) Mean Corpuscular Volume 87 fL (79-100) Mean Corpuscular Hemoglobin 29 pg (25-35) Mean Corpuscular Hemoglobin Concent 33 g/dL (31-37) Red Cell Distribution Width 14.1 % (11.5-14.5) Platelet Count 287 x10^3/uL (140-400) Neutrophils (%) (Auto) 82 % (31-73) Lymphocytes (%) (Auto) 10 % (24-48) Monocytes (%) (Auto) 7 % (0-9) Eosinophils (%) (Auto) 1 % (0-3) Basophils (%) (Auto) 0 % (0-3) Neutrophils # (Auto) 10.3 x10^3/uL (1.8-7.7) Lymphocytes # (Auto) 1.3 x10^3/uL (1.0-4.8) Monocytes # (Auto) 0.8 x10^3/uL (0.0-1.1) Eosinophils # (Auto) 0.1 x10^3/uL (0.0-0.7) Basophils # (Auto) 0.0 x10^3/uL (0.0-0.2) Heparin Anti-Xa Act, Unfractionated < 0.10 IU/mL (0.30-0.70) Sodium Level 140 mmol/L (136-145) Potassium Level 4.2 mmol/L (3.5-5.1) Chloride Level 104 mmol/L (98-107) Carbon Dioxide Level 28 mmol/L (21-32) Anion Gap 8 (6-14) Blood Urea Nitrogen 19 mg/dL (8-26) Creatinine 0.6 mg/dL (0.7-1.3) Estimated GFR (Cockcroft-Gault) 137.4 BUN/Creatinine Ratio 32 (6-20) Glucose Level 158 mg/dL (70-99) Calcium Level 8.7 mg/dL (8.5-10.1) Total Bilirubin 0.7 mg/dL (0.2-1.0) Aspartate Amino Transf (AST/SGOT) 20 U/L (15-37) Alanine Aminotransferase (ALT/SGPT) 23 U/L (16-63) Alkaline Phosphatase 107 U/L (46-116) Troponin I Quantitative 0.073 ng/mL (0.000-0.055) Total Protein 6.3 g/dL (6.4-8.2) Albumin 3.1 g/dL (3.4-5.0) Albumin/Globulin Ratio 1.0 (1.0-1.7) Glucose (Fingerstick) 162 mg/dL (70-99) Laboratory Tests Test 12/09/18 19:20 12/09/18 19:55 12/09/18 22:35 12/10/18 01:25 White Blood Count 11.7 x10^3/uL (4.0-11.0) Red Blood Count 5.24 x10^6/uL (4.30-5.70) Hemoglobin 15.1 g/dL (13.0-17.5) Hematocrit 45.8 % (39.0-53.0) Mean Corpuscular Volume 87 fL (79-100) Mean Corpuscular Hemoglobin 29 pg (25-35) Mean Corpuscular Hemoglobin Concent 33 g/dL (31-37) Red Cell Distribution Width 14.5 % (11.5-14.5) Platelet Count 310 x10^3/uL (140-400) Neutrophils (%) (Auto) 80 % (31-73) Lymphocytes (%) (Auto) 13 % (24-48) Monocytes (%) (Auto) 6 % (0-9) Eosinophils (%) (Auto) 1 % (0-3) Basophils (%) (Auto) 0 % (0-3) Neutrophils # (Auto) 9.3 x10^3/uL (1.8-7.7) Lymphocytes # (Auto) 1.5 x10^3/uL (1.0-4.8) Monocytes # (Auto) 0.7 x10^3/uL (0.0-1.1) Eosinophils # (Auto) 0.1 x10^3/uL (0.0-0.7) Basophils # (Auto) 0.0 x10^3/uL (0.0-0.2) Prothrombin Time 12.5 SEC (11.7-14.0) Prothromb Time International Ratio 1.0 (0.8-1.1) Sodium Level 140 mmol/L (136-145) Potassium Level 3.7 mmol/L (3.5-5.1) Chloride Level 100 mmol/L (98-107) Carbon Dioxide Level 30 mmol/L (21-32) Anion Gap 10 (6-14) Blood Urea Nitrogen 20 mg/dL (8-26) Creatinine 0.7 mg/dL (0.7-1.3) Estimated GFR (Cockcroft-Gault) 115.0 BUN/Creatinine Ratio 29 (6-20) Glucose Level 138 mg/dL (70-99) Calcium Level 9.0 mg/dL (8.5-10.1) Magnesium Level 1.9 mg/dL (1.8-2.4) Total Bilirubin 0.4 mg/dL (0.2-1.0) Aspartate Amino Transf (AST/SGOT) 14 U/L (15-37) Alanine Aminotransferase (ALT/SGPT) 19 U/L (16-63) Alkaline Phosphatase 106 U/L (46-116) Troponin I Quantitative 0.081 ng/mL (0.000-0.055) 0.045 ng/mL (0.000-0.055) Total Protein 7.3 g/dL (6.4-8.2) Albumin 3.5 g/dL (3.4-5.0) Albumin/Globulin Ratio 0.9 (1.0-1.7) Lactic Acid Level 1.0 mmol/L (0.4-2.0) Urine Collection Type Unknown Urine Color Yellow Urine Clarity Clear Urine pH 7.0 Urine Specific [place] >=1.030 Urine Protein Negative mg/dL (NEG-TRACE) Urine Glucose (UA) 500 mg/dL (NEG) Urine Ketones (Stick) Negative mg/dL (NEG) Urine Blood Negative (NEG) Urine Nitrite Negative (NEG) Urine Bilirubin Negative (NEG) Urine Urobilinogen Dipstick 1.0 mg/dL (0.2 mg/dL) Urine Leukocyte Esterase Negative (NEG) Urine RBC 0 /HPF (0-2) Urine WBC Occ /HPF (0-4) Urine Squamous Epithelial Cells Occ /LPF Urine Bacteria 0 /HPF (0-FEW) Urine Mucus Slight /LPF Test 12/10/18 04:40 12/10/18 08:24 White Blood Count 12.5 x10^3/uL (4.0-11.0) Red Blood Count 4.97 x10^6/uL (4.30-5.70) Hemoglobin 14.4 g/dL (13.0-17.5) Hematocrit 43.5 % (39.0-53.0) Mean Corpuscular Volume 87 fL (79-100) Mean Corpuscular Hemoglobin 29 pg (25-35) Mean Corpuscular Hemoglobin Concent 33 g/dL (31-37) Red Cell Distribution Width 14.1 % (11.5-14.5) Platelet Count 287 x10^3/uL (140-400) Neutrophils (%) (Auto) 82 % (31-73) Lymphocytes (%) (Auto) 10 % (24-48) Monocytes (%) (Auto) 7 % (0-9) Eosinophils (%) (Auto) 1 % (0-3) Basophils (%) (Auto) 0 % (0-3) Neutrophils # (Auto) 10.3 x10^3/uL (1.8-7.7) Lymphocytes # (Auto) 1.3 x10^3/uL (1.0-4.8) Monocytes # (Auto) 0.8 x10^3/uL (0.0-1.1) Eosinophils # (Auto) 0.1 x10^3/uL (0.0-0.7) Basophils # (Auto) 0.0 x10^3/uL (0.0-0.2) Heparin Anti-Xa Act, Unfractionated < 0.10 IU/mL (0.30-0.70) Sodium Level 140 mmol/L (136-145) Potassium Level 4.2 mmol/L (3.5-5.1) Chloride Level 104 mmol/L (98-107) Carbon Dioxide Level 28 mmol/L (21-32) Anion Gap 8 (6-14) Blood Urea Nitrogen 19 mg/dL (8-26) Creatinine 0.6 mg/dL (0.7-1.3) Estimated GFR (Cockcroft-Gault) 137.4 BUN/Creatinine Ratio 32 (6-20) Glucose Level 158 mg/dL (70-99) Calcium Level 8.7 mg/dL (8.5-10.1) Total Bilirubin 0.7 mg/dL (0.2-1.0) Aspartate Amino Transf (AST/SGOT) 20 U/L (15-37) Alanine Aminotransferase (ALT/SGPT) 23 U/L (16-63) Alkaline Phosphatase 107 U/L (46-116) Troponin I Quantitative 0.073 ng/mL (0.000-0.055) Total Protein 6.3 g/dL (6.4-8.2) Albumin 3.1 g/dL (3.4-5.0) Albumin/Globulin Ratio 1.0 (1.0-1.7) Glucose (Fingerstick) 162 mg/dL (70-99) Images Images CT abd/pelvis: IMPRESSION: 1. Aorta is grossly normal in caliber without evidence for aortic dissection. 2. The gallbladder is distended measuring up to 5.5 cm transverse dimension, with infiltration about the cystic duct and medial portion of the gallbladder. These findings are suspicious for acute cholecystitis. 3. Hepatic steatosis with focal fatty sparing at the gallbladder fossa. 4. Periumbilical hernia containing a short segment of small bowel 5. Nonobstructing bilateral renal calculi. VTE Prophylaxis Ordered VTE Prophylaxis Devices: Yes VTE Pharmacological Prophylaxi: Yes Assessment/Plan Assessment/Plan abdominal pain - consistent with acute cholecystitis - consult surgery abnormal troponin - normal cardiac work up 2 mo ago with echo and stress MPI - consult cardiology DM type 2 with hx of peripheral neuropathy - continue home meds HTN - continue home meds OA knees and lumbar spine Marilou CAMACHO MD Dec 10, 2018 10:25
[2018-12-10 11:00] VITALS: BP 132/80
--- NOTE | 2018-12-10 11:59 | PDOC2 ---
RIZWAN MCKEON SECUR[employer] DELIVERY SPECIALIST 12/10/18 1159: CARDIAC CONSULT DATE OF CONSULT Date of Consult DATE: 12/10/18 TIME: 11:50 REASON FOR CONSULT Reason for Consult: Elevated troponin REFERRING PHYSICIAN Referring Physician: Dr. Del Toro SOURCE Source: Chart review, Patient HISTORY OF PRESENT ILLNESS HISTORY OF PRESENT ILLNESS This is a 58 yo male who presented secondary to abdominal pain. Began yesterday morning upon awaking. Feels like he has a knot in his stomach. Has mild RUQ tenderness. Associated with mild SOA. Patient denies any chest pain, palpitations, dizziness, diaphoresis, or nausea/vomiting Troponin noted to be mildly elevated, which prompted this consult. . Blood pressure signifincantly elevated upon arrival. Patient did not take his routine oral med due to he abdominal pain. PAST MEDICAL HISTORY Cardiovascular: HTN CENTRAL NERVOUS SYSTEM: Periperal neuropathy Musculoskeletal: Osteoarthritis Endocrine: Diabetes PAST SURGICAL HISTORY Past Surgical History: Hernia Repair, Total knee replacement (right ), Tonsillectomy FAMILY HISTORY Family History: Diabetes SOCIAL HISTORY Smoke: No ALCOHOL: none Drugs: None Lives: Alone CURRENT MEDICATIONS CURRENT MEDICATIONS Current Medications Medications (Trade) Dose Ordered Sig/Angelique Route PRN Reason Start Time Stop Time Status Last Admin Dose Admin Morphine Sulfate (Morphine Sulfate) 4 mg PRN Q15MIN PRN IV/SQ PAIN GREATER THAN 3/10 12/09/18 19:45 12/10/18 19:44 12/09/18 20:16 Pantoprazole Sodium (PROTONIX VIAL for IV PUSH) 40 mg 1X ONCE IVP 12/09/18 19:45 12/09/18 19:46 DC 12/09/18 20:16 Ondansetron HCl (Zofran) 4 mg 1X ONCE IV 12/09/18 19:45 12/09/18 19:46 DC 12/09/18 20:16 Iohexol (Omnipaque 350 Mg/ml) 90 ml 1X ONCE IV 12/09/18 20:15 12/09/18 20:16 DC 12/09/18 20:26 Aspirin (Trace Aspirin) 325 mg 1X ONCE PO 12/09/18 21:30 12/09/18 21:31 DC 12/09/18 21:56 Morphine Sulfate (Morphine Sulfate) 2 mg PRN Q2HR PRN IV PAIN 12/09/18 21:15 12/10/18 21:14 12/09/18 22:38 Piperacillin Sod/ Tazobactam Sod 4.5 gm/Sodium Chloride 100 ml @ 200 mls/hr 1X ONCE IV 12/09/18 21:30 12/09/18 21:59 DC 12/09/18 21:56 Heparin Sodium/ Dextrose 500 ml @ 0 mls/hr CONT PRN IV SEE COMMENTS 12/09/18 22:00 12/09/18 22:55 Heparin Sodium (Porcine) (Heparin Sodium) 2,650 unit PRN Q6HRS PRN IV FOR UFH LEVEL LESS THAN 0.2 12/09/18 22:00 12/10/18 05:34 ALLERGIES ALLERGIES: Coded Allergies: No Known Drug Allergies (Unverified , 10/09/18) ROS Review of System 14 point ROS conducted with pertinent positives noted above in HPI PHYSICAL EXAM General: Alert, Oriented X3, Cooperative, No acute distress HEENT: Atraumatic, Mucous membr. moist/pink Lungs: Clear to auscultation, Normal air movement Heart: Regular rate, Normal S1, Normal S2 Abdomen: Other (RUQ tenderness ) Extremities: No edema, Normal pulses Skin: No significant lesion Neuro: Normal speech, Sensation intact Psych/Mental Status: Mental status NL, Mood NL MUSCULOSKELETAL: No deformity VITALS/I&O VITALS/I&O: Vital Signs Date Time Temp Pulse Resp B/P (MAP) Pulse Ox O2 Delivery O2 Flow Rate FiO2 12/10/18 08:00 Room Air 12/10/18 07:00 98.4 78 16 114/65 (81) 91 98.4 12/09/18 20:58 2.0 I & O 12/09/18 12/09/18 12/10/18 14:59 22:59 06:59 Intake Total 100 ml 0 ml Output Total 375 ml Balance 100 ml -375 ml LABS Lab: Laboratory Tests Test 12/09/18 19:20 12/09/18 19:55 12/09/18 22:35 12/10/18 01:25 White Blood Count 11.7 x10^3/uL (4.0-11.0) H Red Blood Count 5.24 x10^6/uL (4.30-5.70) Hemoglobin 15.1 g/dL (13.0-17.5) Hematocrit 45.8 % (39.0-53.0) Mean Corpuscular Volume 87 fL (79-100) Mean Corpuscular Hemoglobin 29 pg (25-35) Mean Corpuscular Hemoglobin Concent 33 g/dL (31-37) Red Cell Distribution Width 14.5 % (11.5-14.5) Platelet Count 310 x10^3/uL (140-400) Neutrophils (%) (Auto) 80 % (31-73) H Lymphocytes (%) (Auto) 13 % (24-48) L Monocytes (%) (Auto) 6 % (0-9) Eosinophils (%) (Auto) 1 % (0-3) Basophils (%) (Auto) 0 % (0-3) Neutrophils # (Auto) 9.3 x10^3/uL (1.8-7.7) H Lymphocytes # (Auto) 1.5 x10^3/uL (1.0-4.8) Monocytes # (Auto) 0.7 x10^3/uL (0.0-1.1) Eosinophils # (Auto) 0.1 x10^3/uL (0.0-0.7) Basophils # (Auto) 0.0 x10^3/uL (0.0-0.2) Prothrombin Time 12.5 SEC (11.7-14.0) Prothrombin Time INR 1.0 (0.8-1.1) Sodium Level 140 mmol/L (136-145) Potassium Level 3.7 mmol/L (3.5-5.1) Chloride Level 100 mmol/L (98-107) Carbon Dioxide Level 30 mmol/L (21-32) Anion Gap 10 (6-14) Blood Urea Nitrogen 20 mg/dL (8-26) Creatinine 0.7 mg/dL (0.7-1.3) Estimated GFR (Cockcroft-Gault) 115.0 BUN/Creatinine Ratio 29 (6-20) H Glucose Level 138 mg/dL (70-99) H Calcium Level 9.0 mg/dL (8.5-10.1) Magnesium Level 1.9 mg/dL (1.8-2.4) Total Bilirubin 0.4 mg/dL (0.2-1.0) Aspartate Amino Transferase (AST) 14 U/L (15-37) L Alanine Aminotransferase (ALT) 19 U/L (16-63) Alkaline Phosphatase 106 U/L (46-116) Troponin I Quantitative 0.081 ng/mL (0.000-0.055) 0.045 ng/mL (0.000-0.055) Total Protein 7.3 g/dL (6.4-8.2) Albumin 3.5 g/dL (3.4-5.0) Albumin/Globulin Ratio 0.9 (1.0-1.7) L Lactic Acid Level 1.0 mmol/L (0.4-2.0) Urine Collection Type Unknown Urine Color Yellow Urine Clarity Clear Urine pH 7.0 Urine Specific [place] >=1.030 Urine Protein Negative mg/dL (NEG-TRACE) Urine Glucose (UA) 500 mg/dL (NEG) Urine Ketones (Stick) Negative mg/dL (NEG) Urine Blood Negative (NEG) Urine Nitrite Negative (NEG) Urine Bilirubin Negative (NEG) Urine Urobilinogen Dipstick 1.0 mg/dL (0.2 mg/dL) Urine Leukocyte Esterase Negative (NEG) Urine RBC 0 /HPF (0-2) Urine WBC Occ /HPF (0-4) Urine Squamous Epithelial Cells Occ /LPF Urine Bacteria 0 /HPF (0-FEW) Urine Mucus Slight /LPF Test 12/10/18 04:40 12/10/18 08:24 White Blood Count 12.5 x10^3/uL (4.0-11.0) H Red Blood Count 4.97 x10^6/uL (4.30-5.70) Hemoglobin 14.4 g/dL (13.0-17.5) Hematocrit 43.5 % (39.0-53.0) Mean Corpuscular Volume 87 fL (79-100) Mean Corpuscular Hemoglobin 29 pg (25-35) Mean Corpuscular Hemoglobin Concent 33 g/dL (31-37) Red Cell Distribution Width 14.1 % (11.5-14.5) Platelet Count 287 x10^3/uL (140-400) Neutrophils (%) (Auto) 82 % (31-73) H Lymphocytes (%) (Auto) 10 % (24-48) L Monocytes (%) (Auto) 7 % (0-9) Eosinophils (%) (Auto) 1 % (0-3) Basophils (%) (Auto) 0 % (0-3) Neutrophils # (Auto) 10.3 x10^3/uL (1.8-7.7) H Lymphocytes # (Auto) 1.3 x10^3/uL (1.0-4.8) Monocytes # (Auto) 0.8 x10^3/uL (0.0-1.1) Eosinophils # (Auto) 0.1 x10^3/uL (0.0-0.7) Basophils # (Auto) 0.0 x10^3/uL (0.0-0.2) Heparin Anti-Xa Act, Unfractionated < 0.10 IU/mL (0.30-0.70) L Sodium Level 140 mmol/L (136-145) Potassium Level 4.2 mmol/L (3.5-5.1) Chloride Level 104 mmol/L (98-107) Carbon Dioxide Level 28 mmol/L (21-32) Anion Gap 8 (6-14) Blood Urea Nitrogen 19 mg/dL (8-26) Creatinine 0.6 mg/dL (0.7-1.3) L Estimated GFR (Cockcroft-Gault) 137.4 BUN/Creatinine Ratio 32 (6-20) H Glucose Level 158 mg/dL (70-99) H Calcium Level 8.7 mg/dL (8.5-10.1) Total Bilirubin 0.7 mg/dL (0.2-1.0) Aspartate Amino Transferase (AST) 20 U/L (15-37) Alanine Aminotransferase (ALT) 23 U/L (16-63) Alkaline Phosphatase 107 U/L (46-116) Troponin I Quantitative 0.073 ng/mL (0.000-0.055) Total Protein 6.3 g/dL (6.4-8.2) L Albumin 3.1 g/dL (3.4-5.0) L Albumin/Globulin Ratio 1.0 (1.0-1.7) Glucose (Fingerstick) 162 mg/dL (70-99) H Laboratory Tests 12/09/18 19:20 12/10/18 04:40 Laboratory Tests 12/09/18 19:20 12/10/18 04:40 ECHOCARDIOGRAM ECHOCARDIOGRAM <Conclusion> The left ventricle is normal size. The left ventricular systolic function is normal. The ejection fraction is estimated at 65%. There is mild concentric left ventricular hypertrophy. There is no significant aortic valvular stenosis. Doppler and Color Flow revealed no significant aortic regurgitation. Doppler and Color Flow revealed trace mitral valve regurgitation. Doppler and Color Flow revealed no tricuspid valve regurgitation noted. DATE: 11/29/18 1330 STRESS TEST STRESS TEST Conclusion 1. Regadenoson cardioisotope stress test did not show any evidence of ischemia or infarct. 2. Normal left ventricular systolic function with ejection fraction calculated at 65%. 3. Low risk for cardiac events. DATE: 10/01/18 1318 ASSESSMENT/PLAN ASSESSMENT/PLAN 1. Abdominal pain; concerns for acute cholecystitis noted on further imaging. Surgery team consulted 2. Hypertensive urgency. Now controlled 3. Mild troponin elevation; peak 0.081. Recent stress test without ischemia or infarct. Echo with preserved LV systolic function. Most probably type II, demand ischemia in the setting of #2. 4. Diabetes, II Recommendations Supportive care Follow surgery recs No further cardiac workup warranted at this time Low risk for surgery from CV standpoint. RINKU JAIN MD 12/10/18 8344: CARDIAC CONSULT ASSESSMENT/PLAN ASSESSMENT/PLAN Patient seen and examined. Agree with [facility]'s assessment and plan. Slight troponin elevation probably demand ischemia Recent 2-D echo showed normal LV function and MPI did not show any significant ischemia No further workup is indicated at this time. Okay to proceed with surgery from cardiac standpoint Blood pressure better controlled Thank you for your consultation RIZWAN MCKEON APRN Dec 10, 2018 11:59 RINKU JAIN MD Dec 10, 2018 17:09
--- NOTE | 2018-12-10 14:07 | RAD ---
Examination: ABDOMEN LTD History: Right upper quadrant pain Comparison/Correlation: None Findings: Right upper quadrant ultrasound exam was performed. Hepatic echotexture is normal. Portal venous flow is unremarkable. The gallbladder is distended with sludge within it. Possibility of punctate calculi in the gallbladder space. Tenderness upon examination is reported by the technologist at the right upper quadrant. There is no gallbladder wall thickening or pericholecystic fluid. Liver length is 18.7 cm. Right kidney measures 4.2 cm x 6.4 cm x 3.9 cm. No right hydronephrosis or nephrolithiasis. Proximal pancreas is unremarkable. The pancreas is obscured by bowel gas. Inferior vena cava is unremarkable. Impression: Gallbladder is distended. No biliary dilatation. Right upper quadrant tenderness as reported by technologist when imaging the right upper quadrant. No other findings of cholecystitis. Possibility of punctate calculus involving the gallbladder with sludge. All Electronically signed by: Fernando Hand MD (12/10/2018 2:05 PM) [facility]
[2018-12-10 15:00] VITALS: BP 144/72
[2018-12-10] MEDS: PIPERACILLIN/TAZOBACTAM 3.375 GM in IV NORMAL SALINE 50ML 50 ML IV SCH (15:16)
--- NOTE | 2018-12-10 16:00 | PDOC2 ---
CONSULT Date of Consult Date of Consult DATE: 12/10/18 TIME: 15:54 Reason for Consult Reason for Consult: cholecystitis Referring Physician Referring Physician: Dr Adkins Identification/Chief Complaint Chief Complaint RUQ, chest pain Source Source: Chart review, Patient History of Present Illness Reason for Visit: Edy is a 58 yo man who presented with RUQ/chest pain and a mildly elevated troponin. CT showed a distended GB. Past Medical History Cardiovascular: HTN Pulmonary: No pertinent hx CENTRAL NERVOUS SYSTEM: Periperal neuropathy GI: Other (umbilical hernia) Heme/Onc: No pertinent hx Hepatobiliary: Cholelithiasis (just discovered) Psych: No pertinent hx Musculoskeletal: Osteoarthritis Rheumatologic: Other (OA) Infectious disease: No pertinent hx ENT: No pertinent hx Renal/: Other (kidney stones) Endocrine: Diabetes Dermatology: No pertinent hx Past Surgical History Past Surgical History: Hernia Repair (umbilical), Tonsillectomy Family History Family History: Cancer (colon, brother), Hypertension Social History Quit (quit > 10 yrs ago) ALCOHOL: none Drugs: None Current Problem List Problem List Problems Medical Problems: (1) Abdominal pain Status: Acute Current Medications Current Medications Current Medications Morphine Sulfate (Morphine Sulfate) 4 mg PRN Q15MIN PRN IV/SQ PAIN GREATER THAN 3/10 Last administered on 12/09/18at 20:16; Start 12/09/18 at 19:45; Stop 12/10/18 at 19:44 Pantoprazole Sodium (PROTONIX VIAL for IV PUSH) 40 mg 1X ONCE IVP Last administered on 12/09/18at 20:16; Start 12/09/18 at 19:45; Stop 12/09/18 at 19:46; Status DC Ondansetron HCl (Zofran) 4 mg 1X ONCE IV Last administered on 12/09/18at 20:16; Start 12/09/18 at 19:45; Stop 12/09/18 at 19:46; Status DC Iohexol (Omnipaque 350 Mg/ml) 90 ml 1X ONCE IV Last administered on 12/09/18at 20:26; Start 12/09/18 at 20:15; Stop 12/09/18 at 20:16; Status DC Info (CONTRAST GIVEN -- Rx MONITORING) 1 each PRN DAILY PRN MC SEE COMMENTS; Start 12/09/18 at 20:15; Stop 12/11/18 at 20:14 Aspirin (Trace Aspirin) 325 mg 1X ONCE PO Last administered on 12/09/18at 21:56; Start 12/09/18 at 21:30; Stop 12/09/18 at 21:31; Status DC Nitroglycerin (Nitrostat) 0.4 mg PRN Q5MIN PRN SL CP RATING > 1/10; Start 12/09/18 at 21:15; Stop 12/10/18 at 21:14 Heparin Sodium (Porcine) (Heparin Sodium) 4,000 unit 1X ONCE IV ; Start 12/09/18 at 21:30; Stop 12/09/18 at 21:31; Status Cancel Heparin Sodium/ Dextrose 500 ml @ 0 mls/hr 1X ONCE IV ; Start 12/09/18 at 21:30; Stop 12/09/18 at 21:31; Status Cancel Ondansetron HCl (Zofran) 4 mg PRN Q8HRS PRN IV NAUSEA/VOMITING; Start 12/09/18 at 21:15; Stop 12/10/18 at 21:14 Morphine Sulfate (Morphine Sulfate) 2 mg PRN Q2HR PRN IV PAIN Last administered on 12/09/18at 22:38; Start 12/09/18 at 21:15; Stop 12/10/18 at 21:14 Piperacillin Sod/ Tazobactam Sod 4.5 gm/Sodium Chloride 100 ml @ 200 mls/hr 1X ONCE IV Last administered on 12/09/18at 21:56; Start 12/09/18 at 21:30; Stop 12/09/18 at 21:59; Status DC Hydralazine HCl (Apresoline Inj) 10 mg PRN Q4HRS PRN IVP ELEVATED BP, SEE COMMENTS; Start 12/09/18 at 21:30 Heparin Sodium/ Dextrose 500 ml @ 0 mls/hr CONT PRN IV SEE COMMENTS Last administered on 12/09/18at 22:55; Start 12/09/18 at 22:00; Stop 12/10/18 at 12:56; Status DC Heparin Sodium (Porcine) (Heparin Sodium) 2,650 unit PRN Q6HRS PRN IV FOR UFH LEVEL LESS THAN 0.2 Last administered on 12/10/18at 05:34; Start 12/09/18 at 22:00; Stop 12/10/18 at 12:59; Status DC Influenza Virus Vaccine Quadrival (Afluria Quad 2019-20 (3yr Up) Syringe) 0.5 ml ONCE ONCE VAX IM ; Start 12/10/18 at 09:00; Stop 12/10/18 at 09:01; Status DC Info (FLU VACCINE SCREEN per RX) 1 each PRN 1X PRN MC SEE COMMENTS; Start 12/10/18 at 01:00; Status Cancel Info (FLU VACCINE SCREEN per RX) 1 each PRN 1X PRN MC SEE COMMENTS; Start 12/10/18 at 01:45; Status Cancel Lisinopril (Prinivil) 40 mg DAILY PO ; Start 12/10/18 at 09:00 Non-Formulary Medication (Dapagliflozin Propanediol (Farxiga)) 5 mg DAILY PO ; Start 12/10/18 at 09:00; Status UNV Gabapentin (Neurontin) 900 mg DAILY PO ; Start 12/10/18 at 09:00 Insulin Glargine (Lantus Syringe) 8 unit DAILY SQ ; Start 12/10/18 at 09:00 Non-Formulary Medication (Liraglutide (Victoza 3-Marco Antonio)) 1.2 mg DAILY08 SQ ; Start 12/11/18 at 08:00; Status UNV Metformin HCl (Glucophage) 500 mg DAILYWBKFT PO ; Start 12/12/18 at 08:00 Info (Anti-Coagulation Monitoring By Pharmacy) 1 each PRN DAILY PRN MC SEE COMMENTS; Start 12/10/18 at 08:45; Stop 12/10/18 at 12:59; Status DC Piperacillin Sod/ Tazobactam Sod 3.375 gm/Sodium Chloride 50 ml @ 100 mls/hr Q6HRS IV Last administered on 12/10/18at 15:16; Start 12/10/18 at 15:00 Ondansetron HCl (Zofran) 4 mg PRN Q6HRS PRN IV NAUSEA/VOMITING; Start 12/11/18 at 07:00; Stop 12/12/18 at 06:59 Fentanyl Citrate (Fentanyl 2ml Vial) 25 mcg PRN Q5MIN PRN IV MILD PAIN 1-3; Start 12/11/18 at 07:00; Stop 12/12/18 at 06:59 Fentanyl Citrate (Fentanyl 2ml Vial) 50 mcg PRN Q5MIN PRN IV MODERATE TO SEVERE PAIN; Start 12/11/18 at 07:00; Stop 12/12/18 at 06:59 Morphine Sulfate (Morphine Sulfate) 1 mg PRN Q10MIN PRN IV SEVERE PAIN 7-10; Start 12/11/18 at 07:00; Stop 12/12/18 at 06:59 Ringer's Solution 1,000 ml @ 30 mls/hr Q24H IV ; Start 12/11/18 at 07:00; Stop 12/11/18 at 18:59 Lidocaine HCl (Xylocaine-Mpf 1% 2ml Vial) 2 ml PRN 1X PRN ID PRIOR TO IV START; Start 12/11/18 at 07:00; Stop 12/12/18 at 06:59 Hydromorphone HCl (Dilaudid) 0.5 mg PRN Q10MIN PRN IV SEV PAIN, Second choice; Start 12/11/18 at 07:00; Stop 12/12/18 at 06:59 Prochlorperazine Edisylate (Compazine) 5 mg PACU PRN PRN IV NAUSEA, MRX1; Start 12/11/18 at 07:00; Stop 12/12/18 at 06:59 Active Scripts Active Reported Victoza 3-Marco Antonio (Liraglutide) 0.6 Mg/0.1 Ml Pen.injctr 1.2 Mg SQ DAILY08 Levemir (Insulin Detemir) 100 Unit/1 Ml Vial 8 Unit SQ DAILY08 Farxiga (Dapagliflozin Propanediol) 5 Mg Tablet 5 Mg PO DAILY Gabapentin 600 Mg Tablet 900 Mg PO DAILY Metformin Hcl 1,000 Mg Tablet 500 Mg PO DAILY Lisinopril 40 Mg Tablet 40 Mg PO DAILY Allergies Allergies: Coded Allergies: No Known Drug Allergies (Unverified , 10/09/18) ROS Review of System negative with exception of present complaints Physical Exam General: Alert, Oriented X3, No acute distress HEENT: Atraumatic Lungs: Normal air movement Heart: Regular rate Abdomen: Soft, Other (mildly TTP in the RUQ) Extremities: No clubbing Neuro: Normal speech Vitals VITALS Vital Signs Date Time Temp Pulse Resp B/P (MAP) Pulse Ox O2 Delivery O2 Flow Rate FiO2 12/10/18 11:00 98.5 85 18 132/80 (97) 95 Room Air 98.5 12/09/18 20:58 2.0 Labs Labs Laboratory Tests Test 12/09/18 19:20 12/09/18 19:55 12/09/18 22:35 12/10/18 01:25 White Blood Count 11.7 x10^3/uL (4.0-11.0) Red Blood Count 5.24 x10^6/uL (4.30-5.70) Hemoglobin 15.1 g/dL (13.0-17.5) Hematocrit 45.8 % (39.0-53.0) Mean Corpuscular Volume 87 fL (79-100) Mean Corpuscular Hemoglobin 29 pg (25-35) Mean Corpuscular Hemoglobin Concent 33 g/dL (31-37) Red Cell Distribution Width 14.5 % (11.5-14.5) Platelet Count 310 x10^3/uL (140-400) Neutrophils (%) (Auto) 80 % (31-73) Lymphocytes (%) (Auto) 13 % (24-48) Monocytes (%) (Auto) 6 % (0-9) Eosinophils (%) (Auto) 1 % (0-3) Basophils (%) (Auto) 0 % (0-3) Neutrophils # (Auto) 9.3 x10^3/uL (1.8-7.7) Lymphocytes # (Auto) 1.5 x10^3/uL (1.0-4.8) Monocytes # (Auto) 0.7 x10^3/uL (0.0-1.1) Eosinophils # (Auto) 0.1 x10^3/uL (0.0-0.7) Basophils # (Auto) 0.0 x10^3/uL (0.0-0.2) Prothrombin Time 12.5 SEC (11.7-14.0) Prothromb Time International Ratio 1.0 (0.8-1.1) Sodium Level 140 mmol/L (136-145) Potassium Level 3.7 mmol/L (3.5-5.1) Chloride Level 100 mmol/L (98-107) Carbon Dioxide Level 30 mmol/L (21-32) Anion Gap 10 (6-14) Blood Urea Nitrogen 20 mg/dL (8-26) Creatinine 0.7 mg/dL (0.7-1.3) Estimated GFR (Cockcroft-Gault) 115.0 BUN/Creatinine Ratio 29 (6-20) Glucose Level 138 mg/dL (70-99) Calcium Level 9.0 mg/dL (8.5-10.1) Magnesium Level 1.9 mg/dL (1.8-2.4) Total Bilirubin 0.4 mg/dL (0.2-1.0) Aspartate Amino Transf (AST/SGOT) 14 U/L (15-37) Alanine Aminotransferase (ALT/SGPT) 19 U/L (16-63) Alkaline Phosphatase 106 U/L (46-116) Troponin I Quantitative 0.081 ng/mL (0.000-0.055) 0.045 ng/mL (0.000-0.055) Total Protein 7.3 g/dL (6.4-8.2) Albumin 3.5 g/dL (3.4-5.0) Albumin/Globulin Ratio 0.9 (1.0-1.7) Lactic Acid Level 1.0 mmol/L (0.4-2.0) Urine Collection Type Unknown Urine Color Yellow Urine Clarity Clear Urine pH 7.0 Urine Specific Bentley >=1.030 Urine Protein Negative mg/dL (NEG-TRACE) Urine Glucose (UA) 500 mg/dL (NEG) Urine Ketones (Stick) Negative mg/dL (NEG) Urine Blood Negative (NEG) Urine Nitrite Negative (NEG) Urine Bilirubin Negative (NEG) Urine Urobilinogen Dipstick 1.0 mg/dL (0.2 mg/dL) Urine Leukocyte Esterase Negative (NEG) Urine RBC 0 /HPF (0-2) Urine WBC Occ /HPF (0-4) Urine Squamous Epithelial Cells Occ /LPF Urine Bacteria 0 /HPF (0-FEW) Urine Mucus Slight /LPF Test 12/10/18 04:40 12/10/18 08:24 12/10/18 11:35 12/10/18 12:16 White Blood Count 12.5 x10^3/uL (4.0-11.0) Red Blood Count 4.97 x10^6/uL (4.30-5.70) Hemoglobin 14.4 g/dL (13.0-17.5) Hematocrit 43.5 % (39.0-53.0) Mean Corpuscular Volume 87 fL (79-100) Mean Corpuscular Hemoglobin 29 pg (25-35) Mean Corpuscular Hemoglobin Concent 33 g/dL (31-37) Red Cell Distribution Width 14.1 % (11.5-14.5) Platelet Count 287 x10^3/uL (140-400) Neutrophils (%) (Auto) 82 % (31-73) Lymphocytes (%) (Auto) 10 % (24-48) Monocytes (%) (Auto) 7 % (0-9) Eosinophils (%) (Auto) 1 % (0-3) Basophils (%) (Auto) 0 % (0-3) Neutrophils # (Auto) 10.3 x10^3/uL (1.8-7.7) Lymphocytes # (Auto) 1.3 x10^3/uL (1.0-4.8) Monocytes # (Auto) 0.8 x10^3/uL (0.0-1.1) Eosinophils # (Auto) 0.1 x10^3/uL (0.0-0.7) Basophils # (Auto) 0.0 x10^3/uL (0.0-0.2) Heparin Anti-Xa Act, Unfractionated < 0.10 IU/mL (0.30-0.70) 0.25 IU/mL (0.30-0.70) Sodium Level 140 mmol/L (136-145) Potassium Level 4.2 mmol/L (3.5-5.1) Chloride Level 104 mmol/L (98-107) Carbon Dioxide Level 28 mmol/L (21-32) Anion Gap 8 (6-14) Blood Urea Nitrogen 19 mg/dL (8-26) Creatinine 0.6 mg/dL (0.7-1.3) Estimated GFR (Cockcroft-Gault) 137.4 BUN/Creatinine Ratio 32 (6-20) Glucose Level 158 mg/dL (70-99) Calcium Level 8.7 mg/dL (8.5-10.1) Total Bilirubin 0.7 mg/dL (0.2-1.0) Aspartate Amino Transf (AST/SGOT) 20 U/L (15-37) Alanine Aminotransferase (ALT/SGPT) 23 U/L (16-63) Alkaline Phosphatase 107 U/L (46-116) Troponin I Quantitative 0.073 ng/mL (0.000-0.055) Total Protein 6.3 g/dL (6.4-8.2) Albumin 3.1 g/dL (3.4-5.0) Albumin/Globulin Ratio 1.0 (1.0-1.7) Glucose (Fingerstick) 162 mg/dL (70-99) 115 mg/dL (70-99) Laboratory Tests Test 12/09/18 19:20 12/09/18 19:55 12/09/18 22:35 12/10/18 01:25 White Blood Count 11.7 x10^3/uL (4.0-11.0) Red Blood Count 5.24 x10^6/uL (4.30-5.70) Hemoglobin 15.1 g/dL (13.0-17.5) Hematocrit 45.8 % (39.0-53.0) Mean Corpuscular Volume 87 fL (79-100) Mean Corpuscular Hemoglobin 29 pg (25-35) Mean Corpuscular Hemoglobin Concent 33 g/dL (31-37) Red Cell Distribution Width 14.5 % (11.5-14.5) Platelet Count 310 x10^3/uL (140-400) Neutrophils (%) (Auto) 80 % (31-73) Lymphocytes (%) (Auto) 13 % (24-48) Monocytes (%) (Auto) 6 % (0-9) Eosinophils (%) (Auto) 1 % (0-3) Basophils (%) (Auto) 0 % (0-3) Neutrophils # (Auto) 9.3 x10^3/uL (1.8-7.7) Lymphocytes # (Auto) 1.5 x10^3/uL (1.0-4.8) Monocytes # (Auto) 0.7 x10^3/uL (0.0-1.1) Eosinophils # (Auto) 0.1 x10^3/uL (0.0-0.7) Basophils # (Auto) 0.0 x10^3/uL (0.0-0.2) Prothrombin Time 12.5 SEC (11.7-14.0) Prothromb Time International Ratio 1.0 (0.8-1.1) Sodium Level 140 mmol/L (136-145) Potassium Level 3.7 mmol/L (3.5-5.1) Chloride Level 100 mmol/L (98-107) Carbon Dioxide Level 30 mmol/L (21-32) Anion Gap 10 (6-14) Blood Urea Nitrogen 20 mg/dL (8-26) Creatinine 0.7 mg/dL (0.7-1.3) Estimated GFR (Cockcroft-Gault) 115.0 BUN/Creatinine Ratio 29 (6-20) Glucose Level 138 mg/dL (70-99) Calcium Level 9.0 mg/dL (8.5-10.1) Magnesium Level 1.9 mg/dL (1.8-2.4) Total Bilirubin 0.4 mg/dL (0.2-1.0) Aspartate Amino Transf (AST/SGOT) 14 U/L (15-37) Alanine Aminotransferase (ALT/SGPT) 19 U/L (16-63) Alkaline Phosphatase 106 U/L (46-116) Troponin I Quantitative 0.081 ng/mL (0.000-0.055) 0.045 ng/mL (0.000-0.055) Total Protein 7.3 g/dL (6.4-8.2) Albumin 3.5 g/dL (3.4-5.0) Albumin/Globulin Ratio 0.9 (1.0-1.7) Lactic Acid Level 1.0 mmol/L (0.4-2.0) Urine Collection Type Unknown Urine Color Yellow Urine Clarity Clear Urine pH 7.0 Urine Specific Bentley >=1.030 Urine Protein Negative mg/dL (NEG-TRACE) Urine Glucose (UA) 500 mg/dL (NEG) Urine Ketones (Stick) Negative mg/dL (NEG) Urine Blood Negative (NEG) Urine Nitrite Negative (NEG) Urine Bilirubin Negative (NEG) Urine Urobilinogen Dipstick 1.0 mg/dL (0.2 mg/dL) Urine Leukocyte Esterase Negative (NEG) Urine RBC 0 /HPF (0-2) Urine WBC Occ /HPF (0-4) Urine Squamous Epithelial Cells Occ /LPF Urine Bacteria 0 /HPF (0-FEW) Urine Mucus Slight /LPF Test 12/10/18 04:40 12/10/18 08:24 12/10/18 11:35 12/10/18 12:16 White Blood Count 12.5 x10^3/uL (4.0-11.0) Red Blood Count 4.97 x10^6/uL (4.30-5.70) Hemoglobin 14.4 g/dL (13.0-17.5) Hematocrit 43.5 % (39.0-53.0) Mean Corpuscular Volume 87 fL (79-100) Mean Corpuscular Hemoglobin 29 pg (25-35) Mean Corpuscular Hemoglobin Concent 33 g/dL (31-37) Red Cell Distribution Width 14.1 % (11.5-14.5) Platelet Count 287 x10^3/uL (140-400) Neutrophils (%) (Auto) 82 % (31-73) Lymphocytes (%) (Auto) 10 % (24-48) Monocytes (%) (Auto) 7 % (0-9) Eosinophils (%) (Auto) 1 % (0-3) Basophils (%) (Auto) 0 % (0-3) Neutrophils # (Auto) 10.3 x10^3/uL (1.8-7.7) Lymphocytes # (Auto) 1.3 x10^3/uL (1.0-4.8) Monocytes # (Auto) 0.8 x10^3/uL (0.0-1.1) Eosinophils # (Auto) 0.1 x10^3/uL (0.0-0.7) Basophils # (Auto) 0.0 x10^3/uL (0.0-0.2) Heparin Anti-Xa Act, Unfractionated < 0.10 IU/mL (0.30-0.70) 0.25 IU/mL (0.30-0.70) Sodium Level 140 mmol/L (136-145) Potassium Level 4.2 mmol/L (3.5-5.1) Chloride Level 104 mmol/L (98-107) Carbon Dioxide Level 28 mmol/L (21-32) Anion Gap 8 (6-14) Blood Urea Nitrogen 19 mg/dL (8-26) Creatinine 0.6 mg/dL (0.7-1.3) Estimated GFR (Cockcroft-Gault) 137.4 BUN/Creatinine Ratio 32 (6-20) Glucose Level 158 mg/dL (70-99) Calcium Level 8.7 mg/dL (8.5-10.1) Total Bilirubin 0.7 mg/dL (0.2-1.0) Aspartate Amino Transf (AST/SGOT) 20 U/L (15-37) Alanine Aminotransferase (ALT/SGPT) 23 U/L (16-63) Alkaline Phosphatase 107 U/L (46-116) Troponin I Quantitative 0.073 ng/mL (0.000-0.055) Total Protein 6.3 g/dL (6.4-8.2) Albumin 3.1 g/dL (3.4-5.0) Albumin/Globulin Ratio 1.0 (1.0-1.7) Glucose (Fingerstick) 162 mg/dL (70-99) 115 mg/dL (70-99) Images Images CT and US reviewed Assessment/Plan Assessment/Plan RUQ pain cholecystitis no acute cardiac issue for l/s cholecystectomy tomorrow explained risks including but not limited to bleeding, infection, injury to surrounding structures with need for further interventions, possible open, diarrhea will also try to repair recurrent umbilical hernia with same risks and including recurrence he will proceed Thanks for consult ONEIL CUEVAS MD Dec 10, 2018 16:00
[2018-12-10] MEDS: GABAPENTIN 300 MG CAPSULE. PO SCH (16:01)
[2018-12-10] MEDS: LISINOPRIL 20 MG TABLET PO SCH (16:01)
[2018-12-10] MEDS: Dapagliflozin Propanediol (Farxiga) 5 MG PO SCH (17:05)
[2018-12-10] MEDS: Liraglutide (Victoza) 1.2 MG SQ SCH (17:07)
[2018-12-10] MEDS: INSULIN GLARGINE SYRINGE. SQ SCH (17:18)
[2018-12-10 19:00] VITALS: BP 124/69
[2018-12-10 23:00] VITALS: BP 136/77
[2018-12-11] VITALS (11 sets, daily range): BP systolic 110–144; BP diastolic 65–86
[2018-12-11] MEDS: oxyCODONE/APAP 10/325 1 TAB TABLET PO PRN ×2 (05:31→12:58)
[2018-12-11] MEDS: PIPERACILLIN/TAZOBACTAM 3.375 GM in IV NORMAL SALINE 50ML 50 ML IV SCH ×5 (05:32→20:49)
[2018-12-11] MEDS ORDERED: ONDANSETRON PF 4 MG/2 ML VIAL. IV PRN ×3 (07:00→18:45)
[2018-12-11] MEDS ORDERED: IV RINGERS,LACTATED 1000ML 1,000 ML IV SCH ×2 (07:00→17:08)
[2018-12-11] MEDS ORDERED: fentaNYL PF VIAL 100 MCG/2 ML VIAL IV PRN ×4 (07:00→17:15)
[2018-12-11] MEDS ORDERED: HYDROmorphone 2 MG/ML VIAL IV PRN ×3 (07:00→18:45)
[2018-12-11] MEDS ORDERED: MORPHINE SULFATE 2 MG/ML VIAL. IV PRN ×2 (07:00→17:15)
[2018-12-11] MEDS ORDERED: PROCHLORPERAZINE 10 MG/2 ML VIAL. IV PRN ×2 (07:00→17:15)
[2018-12-11] MEDS ORDERED: LIDOCAINE 1% PF 2 ML VIAL. ID PRN ×2 (07:00→17:15)
[2018-12-11] MEDS: Liraglutide (Victoza) 1.2 MG SQ SCH (08:00)
[2018-12-11] MEDS: LISINOPRIL 20 MG TABLET PO SCH (09:00)
[2018-12-11] MEDS: INSULIN GLARGINE SYRINGE. SQ SCH (09:00)
[2018-12-11] MEDS: GABAPENTIN 300 MG CAPSULE. PO SCH (09:00)
[2018-12-11] MEDS: Dapagliflozin Propanediol (Farxiga) 5 MG PO SCH (09:00)
--- NOTE | 2018-12-11 13:13 | PDOC ---
PROGRESS NOTES Subjective Awaiting surgery, in pain (RUQ), monitor with PVCs, cleared by cardiology Objective General: uncomfortable Heart: RRR with PVCs Lungs: CTA Abd: + Gomez's sign, tender, mild distension, umbilical hernia non tender Ext: healed right TKR scar Vital Signs Vital Signs Date Time Temp Pulse Resp B/P (MAP) Pulse Ox O2 Delivery O2 Flow Rate FiO2 12/11/18 13:03 Room Air 12/11/18 12:53 92 94.0 12/11/18 11:00 98.5 88 16 128/74 (92) 98.5 I & O Intake and Output 12/11/18 07:00 Intake Total 0 ml Output Total 1230 ml Balance -1230 ml Intake Oral 0 ml Output Urine Total 1230 ml Assessment and Plan (1) Abdominal pain - pain control Status: Acute (2) Cholecystitis -to OR Status: Acute Marilou CAMACHO MD Dec 11, 2018 13:13
[2018-12-11] MEDS ORDERED: GLUCAGON,HUMAN RECOMBINANT 1 MG/ML VIAL. ONE (16:18)
[2018-12-11] MEDS ORDERED: IOHEXOL 300 MG/ML 50 ML VIAL. ONE (16:19)
[2018-12-11] MEDS ORDERED: SURGICEL HEMOSTAT 4X8 EACH. ONE (16:19)
[2018-12-11] MEDS ORDERED: ROCURONIUM 50 MG/5 ML VIAL. ONE (16:24)
[2018-12-11] MEDS ORDERED: PROPOFOL 20 ML IV ONE (16:24)
[2018-12-11] MEDS ORDERED: FAMOTIDINE 20 MG/2 ML VIAL ONE (16:24)
[2018-12-11] MEDS ORDERED: ONDANSETRON PF 4 MG/2 ML VIAL. ONE (16:24)
[2018-12-11] MEDS ORDERED: DEXAMETHASONE SOD PHOS 4 MG/ML VIAL ONE (16:24)
[2018-12-11] MEDS ORDERED: LIDOCAINE 2% PF 5 ML VIAL. ONE (16:24)
[2018-12-11] MEDS ORDERED: MIDAZOLAM HCL/PF 2 MG/2 ML VIAL. ONE (16:24)
[2018-12-11] MEDS ORDERED: fentaNYL PF VIAL 100 MCG/2 ML VIAL ONE ×2 (16:24→17:02)
[2018-12-11] MEDS ORDERED: BUPIVACAINE-EPI 0.5%-1:200000 MPF 30 ML VIAL. INJ ONE (16:30)
--- NOTE | 2018-12-11 16:52 | PDOC ---
Provider Note Provider Note SURG spoke with Edy in the holding area reviewed risks including but not limited to bleeding, infection, injury to bowel, liver or bile ducts with need for further surgical interventions possible diarrhea, open procedure he will proceed ONEIL CUEVAS MD Dec 11, 2018 16:52
[2018-12-11] MEDS ORDERED: SEVOFLURANE > 120 MINUTES. IH ONE (16:57)
[2018-12-11] MEDS ORDERED: GLYCOPYRROLATE 1 MG/5 ML VIAL. ONE (17:10)
[2018-12-11] MEDS ORDERED: NEOSTIGMINE 10 MG/10 ML VIAL. ONE (17:10)
[2018-12-11] MEDS ORDERED: IV NORMAL SALINE 1000ML BAG 1,000 ML IV SCH (18:36)
[2018-12-11] MEDS ORDERED: oxyCODONE/APAP 5/325 1 TAB TABLET PO PRN (18:45)
[2018-12-11] MEDS ORDERED: NALOXONE 0.4 MG/ML VIAL. IV PRN (18:45)
[2018-12-11] MEDS ORDERED: DEXTROSE 50% 25 GM / 50ML DISP.SYRIN. IV PRN (18:45)
[2018-12-11] MEDS ORDERED: 0.9 % SODIUM CHLORIDE 10 ML DISP.SYRIN. IV PRN (18:45)
[2018-12-11] MEDS ORDERED: IV DEXTROSE 5% 250 ML BAG. IV PRN (18:45)
--- NOTE | 2018-12-11 18:48 | PDOC ---
BRIEF OPERATIVE NOTE Date: Dec 11, 2018 Pre-Op Diagnosis acute cholecystitis Post-Op Diagnosis same with cholelithiasis Procedure Performed l/s jose with grams, primary repair recurrent umbilical hernia Surgeon [employer] Engineer Radha Abreu Anesthesia Type: General Blood Loss 25cc IV Fluid 700cc Specimens Obtained GB Findings acute GB, small stone impacted in cystic duct, "white bile" Complications none Operative Note Wk # [id number] ONEIL CUEVAS MD Dec 11, 2018 18:48
--- NOTE | 2018-12-11 18:55 | RAD ---
Examination: CHOLANGIOGRAM INTRAOPERATIVE History: Right upper quadrant pain Comparison/Correlation: Limited abdominal ultrasound 10 12/10/2018 Findings: A total of 4 images from an intraoperative cholangiogram were provided for interpretation. Cholecystectomy is noted. Extravasation of contrast about the cystic duct is noted on the second and third image primarily. This may be presently minimal extent on the final image provided. Common bile duct has a normal caliber. Common hepatic duct also has a normal caliber. No strictures evident. Impression: Cholecystectomy. No stricture. Electronically signed by: Fernando Hand MD (12/11/2018 6:52 PM) [facility]
[2018-12-11] MEDS: POTASSIUM CL 20MEQ-0.45% NACL 1,000 ML IV SCH (20:49)
[2018-12-11] MEDS ORDERED: ENOXAPARIN 40 MG/0.4 ML SYRINGE. SQ SCH (21:00)
[2018-12-11] MEDS: DOCUSATE SODIUM 100 MG CAPSULE. PO SCH (21:00)
--- NOTE | 2018-12-11 23:22 | OP ---
DATE OF SURGERY: 12/11/2018 PREOPERATIVE DIAGNOSES: Acute cholecystitis with recurrent umbilical hernia. POSTOPERATIVE DIAGNOSES: Acute cholecystitis with recurrent umbilical hernia with cholelithiasis and hydrops gallbladder. PROCEDURE: Lap jose with grams, primary repair, recurrent umbilical hernia. SURGEON: Enzo Cuevas MD MULE RIDER: MARLO Encarnacion, and RUSTY Santamaria ANESTHESIA: General endotracheal. ESTIMATED BLOOD LOSS: 25 mL. INTRAVENOUS FLUIDS: 700 mL. OPERATIVE FINDINGS: The liver was smooth and sharp. The gallbladder was distended with "white bile." There were omental adhesions along the inferior surface of the gallbladder. A small defect in the base of the umbilicus was seen. No other abnormalities detected. OPERATIVE REPORT: The patient was brought to the operating suite, given a general endotracheal anesthetic and the abdomen prepped and draped in usual sterile fashion. A supraumbilical incision was infiltrated with local, incised and a 5-mm Visiport used to safely gain access into the abdominal cavity, taking care to avoid injury to the adjacent bowel. Pneumoperitoneum established, camera inserted, inspection carried out and with the table rolled to the left in reverse Trendelenburg, the epigastric, midclavicular and lateral ports were placed. Approximately 200 mL of "white bile" was aspirated to allow grasping the fundus of the gallbladder to retract it superolaterally. With careful blunt and cautery dissection, the omental adhesions were taken down to expose the gallbladder neck and cystic duct being careful to avoid the adjacent bowel. The cystic artery was intimately adherent to the cystic duct and as such was isolated, clipped and divided. The cystic duct was then clipped and cholangiograms were made. These were normal. In light of this, the catheter was removed. The cystic duct was clipped and divided, taking care to avoid injury or compromise the common duct. Gallbladder freed from the bed with cautery dissection. A posterior vessel was clipped and divided and the gallbladder was placed in an EndoCatch bag. Hemostasis obtained in the fossa with cautery and a small piece of Surgicel. A 19-Azerbaijani round Anish drain was brought through the epigastric port out the lateral port, sewn to the skin with a silk stitch and left in the subhepatic space for postoperative drainage. Table returned to level, an infraumbilical incision was made and using the laparoscope as a guide, the small defect was closed with interrupted 0 PDS sutures. Abdomen decompressed. Skin incisions closed with subcuticular 4-0 Monocryl. Steri-Strips and sterile dressings applied. The patient awakened from his anesthetic and taken to the recovery room in satisfactory condition. ENZO CUEVAS MD DR: LUC/jerry JOB#: [id number] / [id number]
[2018-12-12 00:34] VITALS: BP 126/72
[2018-12-12] MEDS: PIPERACILLIN/TAZOBACTAM 3.375 GM in IV NORMAL SALINE 50ML 50 ML IV SCH ×4 (00:58→17:13)
[2018-12-12] MEDS: oxyCODONE/APAP 5/325 1 TAB TABLET PO PRN ×4 (00:59→17:13)
[2018-12-12 03:00] VITALS: BP 127/71
[2018-12-12 04:50] LABS: HEMOGLOBIN 13.4 g/dL (13.0-17.5); RED BLOOD COUNT 4.68 x10^6/uL (4.30-5.70); RED CELL DISTRIBUTION WIDTH 14.5 % (11.5-14.5); WHITE BLOOD COUNT 13.3 x10^3/uL (4.0-11.0)
[2018-12-12] MEDS: POTASSIUM CL 20MEQ-0.45% NACL 1,000 ML IV SCH ×2 (05:59→15:00)
[2018-12-12 07:00] VITALS: BP 123/68
[2018-12-12] MEDS ORDERED: metFORMIN 500 MG TABLET PO SCH (08:00)
[2018-12-12] MEDS: LISINOPRIL 20 MG TABLET PO SCH (08:50)
[2018-12-12] MEDS: GABAPENTIN 300 MG CAPSULE. PO SCH (08:51)
[2018-12-12] MEDS: Dapagliflozin Propanediol (Farxiga) 5 MG PO SCH (08:52)
[2018-12-12] MEDS: Liraglutide (Victoza) 1.2 MG SQ SCH (08:53)
[2018-12-12] MEDS: DOCUSATE SODIUM 100 MG CAPSULE. PO SCH (08:59)
--- NOTE | 2018-12-12 09:44 | PDOC ---
SURGICAL PROGRESS NOTE Subjective GB pain gone some pain from the hernia repair tolerating diet Vital Signs Vital Signs Date Time Temp Pulse Resp B/P (MAP) Pulse Ox O2 Delivery O2 Flow Rate FiO2 12/12/18 09:00 69 123/68 12/12/18 07:00 97.5 18 98 Nasal Cannula 2.0 97.5 I&O Intake and Output 12/12/18 06:59 Intake Total 100 ml Output Total 1275 ml Balance -1175 ml Intake Oral 100 ml Output Urine Total 1250 ml Estimated Blood Loss 25 ml PATIENT HAS A LAMBERT: No General: Alert, No acute distress Abdomen: Soft, Other (MARK with small amount of serosanguineous output) Labs Laboratory Tests Test 12/10/18 11:35 12/10/18 12:16 12/10/18 17:13 12/10/18 21:20 Heparin Anti-Xa Act, Unfractionated 0.25 IU/mL (0.30-0.70) Glucose (Fingerstick) 115 mg/dL (70-99) 186 mg/dL (70-99) 125 mg/dL (70-99) Test 12/11/18 11:57 12/11/18 19:01 12/11/18 20:48 12/12/18 04:35 Glucose (Fingerstick) 106 mg/dL (70-99) 178 mg/dL (70-99) 153 mg/dL (70-99) White Blood Count 13.3 x10^3/uL (4.0-11.0) Red Blood Count 4.68 x10^6/uL (4.30-5.70) Hemoglobin 13.4 g/dL (13.0-17.5) Hematocrit 41.0 % (39.0-53.0) Mean Corpuscular Volume 88 fL (79-100) Mean Corpuscular Hemoglobin 29 pg (25-35) Mean Corpuscular Hemoglobin Concent 33 g/dL (31-37) Red Cell Distribution Width 14.5 % (11.5-14.5) Platelet Count 304 x10^3/uL (140-400) Test 12/12/18 08:06 Glucose (Fingerstick) 133 mg/dL (70-99) Laboratory Tests Test 12/11/18 11:57 12/11/18 19:01 12/11/18 20:48 12/12/18 04:35 Glucose (Fingerstick) 106 mg/dL (70-99) 178 mg/dL (70-99) 153 mg/dL (70-99) White Blood Count 13.3 x10^3/uL (4.0-11.0) Red Blood Count 4.68 x10^6/uL (4.30-5.70) Hemoglobin 13.4 g/dL (13.0-17.5) Hematocrit 41.0 % (39.0-53.0) Mean Corpuscular Volume 88 fL (79-100) Mean Corpuscular Hemoglobin 29 pg (25-35) Mean Corpuscular Hemoglobin Concent 33 g/dL (31-37) Red Cell Distribution Width 14.5 % (11.5-14.5) Platelet Count 304 x10^3/uL (140-400) Test 12/12/18 08:06 Glucose (Fingerstick) 133 mg/dL (70-99) Problem List Problems Medical Problems: (1) Abdominal pain Status: Acute (2) Cholecystitis Status: Acute Assessment/Plan POD 1 l/s jose, repair umbilical hernia stable surgically home anytime from our standpoint d/c MARK prior to dismissal f/u in the office ten days d/w pt, his sister and niece ONEIL CUEVAS MD Dec 12, 2018 09:44
[2018-12-12] MEDS: INSULIN GLARGINE SYRINGE. SQ SCH (10:25)
[2018-12-12 10:58] VITALS: BP 120/68
[2018-12-12] MEDS ORDERED: LIRA0.6P2 SQ (13:37)
[2018-12-12] MEDS ORDERED: DOCU-109 PO (13:37)
[2018-12-12] MEDS ORDERED: OXYC1TAB15 PO (13:37)
--- NOTE | 2018-12-12 13:46 | PDOC3 ---
Discharge Summary [facility] Date of Admission: Dec 09, 2018 Discharge Date: Dec 12, 2018 Admitting Diagnosis abdominal pain, abnormal troponin Final Diagnosis Acute Cholecystitis, cholelithiasis CONSULTS surgery, cardiology Procedures lap jose, repair of umbilical hernia Brief Hospital Course Mr. Cook is a 58 old who presented with abdominal pain and found to have acute cholecystitis, he had an abnormal troponin and required cardiac clearance prior to surgery but went yesterday and had the above procedures without complication. He is post op day 1 without complications and should be ready for discharge this evening. He is tolerating diet with expected post op pain. His other chronic medical issues are stable and his sugars are controlled, he will resume his home meds but not restart his Victoza for a week, it was held while here. His drain will be removed prior to discharge Patient History: FHx: cancer G8 BROTHER 33 FATHER 32 MOTHER Disposition home CONDITION AT DISCHARGE: Improved, Stable Diet diabetic Scheduled Dapagliflozin Propanediol (Farxiga), 5 MG PO DAILY, (Reported) Docusate Sodium (Colace), 100 MG PO BID Gabapentin (Gabapentin), 900 MG PO DAILY, (Reported) Insulin Detemir (Levemir), 8 UNIT SQ DAILY08, (Reported) Liraglutide (Victoza 3-Marco Antonio), 1.2 MG SQ DAILY08 Lisinopril (Lisinopril), 40 MG PO DAILY, (Reported) Metformin Hcl (Metformin Hcl), 500 MG PO DAILY, (Reported) Scheduled PRN Oxycodone/Apap 5-325 (Percocet 5-325 Mg Tablet ), 1 TAB PO PRN Q4HRS PRN for MILD PAIN, 1ST CHOICE Discontinued Medications Cholecalciferol (Vitamin D3) (Vitamin D), 2,000 UNIT PO WEEKLY, (Reported) Warfarin Sodium (Coumadin), 5 MG PO DAILYBFRSUP, (Reported) Follow Up 1-2 weeks Marilou CAMACHO MD Dec 12, 2018 13:46
[2018-12-12 15:17] VITALS: BP 129/65
--- NOTE | 2018-12-14 16:06 | PATHOLOGY ---
[facility] Accession Number: [id number] . 01 Material submitted: . gallbladder - GALLBLADDER, LYMPH NODE, AND CONTENTS . 01 Clinical history: . Acute cholecystitis, recurrent umbilical hernia . 02 Diagnosis: Gallbladder, laparoscopic cholecystectomy: - Acute hemorrhagic and chronic cholecystitis with increased eosinophils. . (JPM:mm; 12/14/2018) [facility] 12/14/2018 1249 Local . 02 Comment: There are no calculi identified within the gallbladder lumen or specimen container. There is no evidence of malignancy. No lymph node is identified in the specimen. . (JPM:mml; 12/14/2018) . 02 Electronically signed: . William Donahue MD, Pathologist NPI- [id number] . 01 Gross description: . The specimen is received in formalin, labeled "Edy Cook, gallbladder and contents, lymph node". Received is an intact gallbladder measuring 9.7 x 5.0 x 2.1 cm in greatest dimensions displaying a dusky pink-rios, shaggy serosal surface. Opening the specimen reveals a velvety, light brown mucosa with adherent exudate-like material, and with a gallbladder wall thickness of up to 0.2 cm. Calculi are not present, and no masses or lesions are noted grossly. Extensive examination of the specimen reveals no attached lymph nodes. The specimen container displays no separately submitted lymph nodes. Director Of Public Safety sections, to include the proximal margin, are submitted in cassette A1. (CAA; 12/13/2018) QA/QA 12/14/2018 1238 Local . 02 Pathologist provided ICD-10: K81.2 . 02 CPT . 217731 Specimen Comment: A courtesy copy of this report has been sent to Specimen Comment: [phone], , . Specimen Comment: Report sent to ,DR CAMACHO / DR PERKINS Performed at: [address], [place], [place] [id number] MD Jordin Marsh MD Phone: [phone] Performed at: 02 [facility] [address] [place], [place] [id number] MD William Donahue MD Phone: [phone]
== END 2018-12-12 18:00 | disposition home or self-care (01) | DRG 418 ==
LOC: ER 18:50 → 2 SOUTH 21:02
PROVIDERS: ADMIT Family Medicine; ATTEND Family Medicine
PROC: BF101ZZ Fluoroscopy of Bile Ducts using Low Osmolar Contrast (ICD-10-PCS; 2018-12-11)
PROC: 0FT44ZZ Resection of Gallbladder, Percutaneous Endoscopic Approach (ICD-10-PCS; principal; 2018-12-11 14:30)
PROC: 0WQF4ZZ Repair Abdominal Wall, Percutaneous Endoscopic Approach (ICD-10-PCS; 2018-12-11 14:30)
DX: K80.00 Calculus of gallbladder with acute cholecystitis without obstruction (principal); I47.2 Ventricular tachycardia; K82.1 Hydrops of gallbladder; K42.9 Umbilical hernia without obstruction or gangrene; F12.90 Cannabis use, unspecified, uncomplicated; K75.81 Nonalcoholic steatohepatitis (NASH); E78.5 Hyperlipidemia, unspecified; E11.42 Type 2 diabetes mellitus with diabetic polyneuropathy; M47.816 Spondylosis without myelopathy or radiculopathy, lumbar region; M17.0 Bilateral primary osteoarthritis of knee; I16.0 Hypertensive urgency; I49.3 Ventricular premature depolarization; Z96.651 Presence of right artificial knee joint; Z87.442 Personal history of urinary calculi; Z80.0 Family history of malignant neoplasm of digestive organs; Z82.49 Family history of ischemic heart disease and other diseases of the circulatory system; Z79.899 Other long term (current) drug therapy; Z83.3 Family history of diabetes mellitus; Z87.891 Personal history of nicotine dependence
CPT/HCPCS: 36415; 71275; 74175; 74300; 76705; 80053; 81001; 82962; 83605; 83735; 84484; 85025; 85027; 85520; 85610; 90471; 90686; 93005; 96374; 96375; A7015; C9113; J1100; J1170; J1610; J1644; J1650; J1815; J2001; J2250; J2270; J2405; J2543; J2704; J2710; J3010; J3490; J7030; J7120; Q9967; 99285-25; G0378

== ENCOUNTER → 2019-12-05 | Outpatient (CLI) | payer MEDICAID ==
[~2019-12-05] MED LIST changes: +DOCU-109 PO; -GLIM4TAB2 PO; +GLIM4TAB8 PO; +METF-658 PO; -METF500T11 PO; +OXYC1TAB15 PO; -WARF-78 PO; +WARF5TAB2 PO
--- NOTE | 2019-12-05 14:34 | CARD ---
MR#: [id number] Date of Study: 12/05/2019 Ordering Physician: RINKU JAIN, Referring Physician: RINKU JAIN Tech: Abbie Zuniga RDCS APPROVED REPORT EXAM: Two-dimensional and M-mode echocardiogram with Doppler and color Doppler. Other Information Quality : Fair INDICATION Hypertension/HCVD 2D DIMENSIONS RVDd2.9 (2.9-3.5cm)Left Atrium(2D)3.3 (1.6-4.0cm) IVSd1.2 (0.7-1.1cm)Aortic Root(2D)3.4 (2.0-3.7cm) LVDd4.9 (3.9-5.9cm)LVOT Diameter2.3 (1.8-2.4cm) PWd1.2 (0.7-1.1cm)LVDs2.4 (2.5-4.0cm) FS (%) 30.0 %SV89.6 ml LVEF(%)60.0 (>50%) Aortic Valve AoV Peak Leno.164.6cm/sAoV VTI27.5cm AO Peak GR.10.8mmHgLVOT Peak Leno.109.9cm/s AO Mean GR.6mmHgAVA (VMAX)2.66cm2 VANDANA (VTI)3.00cm2 Mitral Valve MV E Xgdpbyrk062.0cm/sMV DECEL PHDP881bz MV A Oqnlcwof654.9cm/sE/A Ratio0.9 Pulmonary Vein S1 Njzqreom27.3cm/sD2 Chnqweoh35.1cm/s LEFT VENTRICLE The left ventricle is normal size. There is mild concentric left ventricular hypertrophy. The left ve ntricular systolic function is normal. The Ejection Fraction is 60-65%. There is normal LV segmental wall motion. Transmitral Doppler flow pattern is Grade I-abnormal relaxation pattern. RIGHT VENTRICLE The right ventricle is normal size. The right ventricular systolic function is normal. ATRIA The left atrium size is normal. The right atrium size is normal. The interatrial septum is intact wit h no evidence for an atrial septal defect or patent foramen ovale as noted on 2-D or Doppler imaging. AORTIC VALVE The aortic valve is calcified but opens well. Doppler and Color Flow revealed no significant aortic r egurgitation. There is no significant aortic valvular stenosis. MITRAL VALVE The mitral valve is normal in structure and function. There is no evidence of mitral valve prolapse. There is no mitral valve stenosis. Doppler and Color Flow revealed no mitral valve regurgitation note d. TRICUSPID VALVE The tricuspid valve is normal in structure and function. Doppler and Color Flow revealed no tricuspid valve regurgitation noted. There is no tricuspid valve stenosis. PULMONIC VALVE The pulmonary valve is normal in structure and function. Doppler and Color Flow revealed no pulmonic valvular regurgitation. There is no pulmonic valvular stenosis. GREAT VESSELS The aortic root is normal in size. The ascending aorta is mildly dilated at 3.9 cm. The IVC is normal in size and collapses >50% with inspiration. PERICARDIAL EFFUSION There is no evidence of significant pericardial effusion. Critical Notification Critical Value: No <Conclusion> The left ventricular systolic function is normal. The Ejection Fraction is 60-65%. There is normal LV segmental wall motion. Transmitral Doppler flow pattern is Grade I-abnormal relaxation pattern. There is no evidence of significant pericardial effusion. Signed by : Rinku Jain, Electronically Approved : 12/05/2019 14:34:26
== END | disposition home or self-care (01) ==
LOC: ECHO 08:28
PROVIDERS: ATTEND Internal Medicine Cardiovascular Disease
DX: I35.1 Nonrheumatic aortic (valve) insufficiency (principal); I11.9 Hypertensive heart disease without heart failure
CPT/HCPCS: 93306